=== PATIENT | male | born 1955 | race Caucasian/White ===

== ENCOUNTER 2024-12-14 10:29 | Outpatient (REF) | payer MEDICARE, SELFPAY ==
--- NOTE | ~2024-12-14 | XR_ITS ---
EXAMINATION: XR LUMBAR SPINE 4 OR MORE VIEWS HISTORY: M43.16 - Spondylolisthesis, lumbar region COMPARISON: There are no prior studies for comparison. FINDINGS: AP, and neutral, flexion, and extension lateral views of the lumbar spine are submitted. The bones are osteopenic. There is a mild compression deformity of L2, indeterminate age. The remaining vertebral bodies maintain normal height. There is grade I spondylolisthesis of L4 on L5 and possibly L5 on S1. No abnormal motion is seen with flexion or extension. There is moderate degenerative disc disease with disc space narrowing and osteophyte formation. The visualized paraspinal soft tissues are unremarkable. XR/XR lumbar spine 4V min IMPRESSION: 1. Mild compression deformity of L2, of indeterminate age. 2. Grade I spondylolisthesis of L4 and L5 and possibly L5 on S1. No abnormal motion is seen with flexion or extension. Electronically signed by: Roddy Reyna MD 12/14/2024 11:17 AM EDT
== END 2024-12-14 10:30 | disposition home or self-care (01) ==
LOC: HO.HOSX 10:29
PROVIDERS: PCP Family Medicine; Visit Provider Neurological Surgery
DX: M43.16 Spondylolisthesis, lumbar region (principal)
CPT/HCPCS: 72110; 99202

== ENCOUNTER 2024-12-14 10:29 | Outpatient (AMB) | payer MEDICARE, SELFPAY ==
[2024-12-14 10:49] VITALS: BMI 28.9
--- NOTE | 2024-12-14 10:49 | HO.SPINEOV ---
Vital Signs 12/14/24 10:49 Height 5 ft 8 in Weight 190 lb BMI 28.9 Intake Visit Reasons: LBP Intake Note: Mr. Richter is here today c/o low mid back pain. Supervisor Testing Required: No Allergies Proton Pump Inhibitors Allergy (Severe, Verified 12/14/24 10:50) Dizziness Physical Exam Vital Signs: BMI result Body Mass Index 28.9 Assessment & Plan Assessment & Plan (1) Spondylolisthesis, lumbar region: Code(s): M43.16 - Spondylolisthesis, lumbar region Category: Medical Plan Dear colleague Thank you for referring Pedrito Calvillo to the office today with a chief complaint of back pain. HPI: This 69-year-old male has a 40+ year history of low back pain that was managed with chiropractic therapy. He would throw his back out and then manipulation would cure the back pain. In 2018 he had an acute episode of sciatica down his left leg with a left footdrop. This sciatic symptoms disappeared and the footdrop mostly improved. He is left with back pain that comes after 10 minutes of walking or standing and disappears when he sits down. The symptoms debilitating he can no longer perform normal daily activities. The following conservative treatment options were tried without success antiinflammatories, tylenol, physical therapy, acupuncture, and cortisone shots. PMH: Pyloric stenosis, melanoma Medications: Omeprazole, fluoxetine, diazepam Allergies: NKDA Social history: Lives alone. His passed 2 years ago. He does have some friends and family as supportive system. He is a nonsmoker. He denies alcohol use. Physical Exam: Pleasant male. Height 5'8 weight 190 lb. He ambulates with a cane. On motor exam there is a grade 3/5 weakness of the left dorsiflexors and extensor hallucis longus. Sensory exam is intact. Reflexes are symmetrically intact. No pathological reflexes. Radiological Studies: MRI done at [facility] on 07/11/2024 shows an anterolisthesis L4-5 with central and foraminal stenosis. In addition, there is a lumbar degenerative scoliosis and epidural lipomatosis causing narrowing of the spinal canal at levels L2-L4. Dynamic lumbar x-rays obtained today show a grade 2 L4-5 spondylolisthesis. There is a degenerative scoliosis L3 L5 and lateral listhesis L4-5. Impression/Plan: This patient is suffering from back pain with the neurogenic component. In the past he had L5 sciatica with a drop foot. Therefore I am pretty confident that his symptoms are coming from the L4-5 spondylolisthesis and associated central stenosis and foraminal stenosis. He does have a scoliotic component that includes L3-4. I offered him an L3-L5 oblique lumbar interbody fusion to correct the scoliosis, spondylolisthesis and indirectly decompress his nerve structures. He wants to proceed and is tentatively scheduled for February 13. He is getting an annual upper endoscopy February 06 as he had a bleeding from his esophagus in the past. Thank you for allowing me to participate in your patients care. total time spent was 50 minutes in counseling ,coordination of plan, personal review of imaging, surgical decision making and subsequent plan John Dye MD, PhD Spine Fellowship Trained Neurosurgeon Director, [facility] Orders: Orders XR lumbar spine 4V min Today M43.16 - Spondylolisthesis, lumbar region Coding Level of Care Code New Pt Level 4 (03274) Diagnoses Spondylolisthesis, lumbar region M43.16
--- OUTSIDE RECORDS SUMMARY | 2024-12-14 12:05 | XMS_ITS | Encounter Summary ---
Author Organization [facility] Address [address] [facility] [address] [place] [address] Phone Care Team Providers Care Human Resources Manager Manufacturing Name Role Phone Morgan Newby MD Primary Care Provider [phone]- [phone] Morgan Newby MD Primary Care Provider [phone]- [phone] Encounter Details Date Type Department Care Team (Late st Contact Info) Description 01/29/2022 Procedure Pass [facility] Endoscopy Admitting Dept Virtual Department [address] [place] [address] Social History Tobacco Use Types Packs/Day Years Used Date Smoking Tobacco: Never Smokeless Tobacco: Never Alcohol Use Standard Drinks/Week Comments Yes 0 (1 standard drink = 0.6 oz pur e alcohol) weekly Sex and Gender Information Value Date Recorded Sex Assigned at Male 02/09/2021 10:43 AM EST Legal Sex Male 9:58 PM EDT Gender Identity Male 02/09/2021 10:43 AM EST Sexual Orientation Straight 05/22/2022 4: 43 PM EST documented as of this encounter Plan of Treatment Not on file documented as of this encounter Visit Diagnoses Not on filedocumented in this encounter Additional Health Concerns Infection Onset Date Last Indicated Resolved Time CoV-Risk 04/05/2022 04/05/2022 04/16/2022 1:22 AM EST CoV-Risk Comment:Per note documentation 03/19/2024 03/19/2024 12:11 PM EST CoV-Risk 05/09/2024 05/09/202405/2005/20/2024 1:22 AM EST CoV-Risk 06/03/2024 06/03/2024 06/14/2024 1:21 AM EDT Influenza A 06/03/2024 06/03/2024 06/17/2024 1:21 AM EDT CoV-Risk 07/28/2024 07/28/2024 08/08/2024 1:21 AM EDT documented as of this encounter Care Teams Human Resources Manager Manufacturing Relationship Specialty Start Date End Date Morgan Newby MD PCP - General Family Medicine 01/13/21 10/17/23 Morgan Newby MD [address] [place] [address] PCP - General Family Medicine 10/18/23 documented as of this encounter Additional Source Comments The information contained in this document represents components of the legal health record. It is not the complete legal health record.[facility]
--- OUTSIDE RECORDS SUMMARY | 2024-12-14 12:05 | XMS_ITS | Encounter Summary ---
Author Organization [facility] Address [address] [place] [address] Phone Care Team Providers Care Tower Truck Driver Name Role Phone Morgan Newby MD Primary Care Provider [phone] Encounter Details Date Type Department Care Team (Late st Contact Info) Description 04/25/2024 Procedure Pass [facility] Endoscopy Admitting Dept Virtual Department [address] [place] [address] Social History Tobacco Use Types Packs/Day Years Used Date Smoking Tobacco: Never Smokeless Tobacco: Never Alcohol Use Standard Drinks/Week Comments Not Currently 0 (1 standard drink = 0.6 oz pure alcohol) a few beers a day before supper Education Answer Date Recorded Are you interested in more education? Not on kendell e 07/30/2022 Are you concerned about learning? Not on file 07/30/2022 No 07/30/2022 No 07/30/2022 Digital Access Answer Date Recorded No 08/30/2022 No 08/30/2022 Reliable internet access at home? Not on file 08/30/2022 Device with a working camera? Not on file Intimate Partner Violence Answer Date R ecorded Are you denied basic needs s uch as food, clothing, or medical care? No 04/25/2024 In the past 12 months have y ou been in a relationship with a person who hurts, threatens, or tries to control you? No 04/25/2024 Are you denied basic needs s uch as food, clothing, or medical care? No 04/25/2024 In the past 12 months have y ou been in a relationship with a person who hurts, threatens, or tries to control you? No 04/25/2024 Sex and Gender Information Value Date Recorded [...] Onset Date Last Indicated Resolved Time CoV-Risk 05/09/2024 05/09/2024 05/20/2024 1:22 AM EST CoV-Risk 06/03/2024 06/03/2024 06/14/2024 1:21 AM EDT Influenza A 06/03/2024 06/03/2024 06/17/2024 1:21 AM EDT CoV-Risk 07/28/2024 07/28/2024 08/08/2024 1:21 AM EDT documented as of this encounter Care Teams Tower Truck Driver Relationship Specialty Start Date End Date Morgan Newby MD [address] [place] [address] [email or web address] PCP - General Family Medicine 10/18/23 documented as of this encounter Additional Source Comments The information contained in this document represents components of the legal health record. It is not the complete legal health record.[facility]
--- OUTSIDE RECORDS SUMMARY | 2024-12-14 12:06 | XMS_ITS | Encounter Summary ---
Author Organization [facility] Address [address] [place] [address] Phone Care Team Providers Care Feather Mixer Name Role Phone Morgan Newby MD Primary Care Provider [phone] Encounter Details Date Type Department Care Team (Latest Contact Info) Description 11/05/2024 Transcribe Orders [facility] Laboratory [address] [facility] [address] [place] [address] Angelique Turk NP [address] [place] [address] [email or web address] [employer] Marte's esophagus with dysplasia (Primary Dx) Social History Tobacco Use Types Packs/Day Years Used Date Smoking Tobacco: Never Smokeless Tobacco: Never Alcohol Use Standard Drinks/Week Comments Yes 21 (1 standard drink = 0.6 oz pure alcohol) a few beers or vodka a day before supper Education Answer Date [...] as food, clothing, or medical care? No 08/13/2024 In the past 12 months have y ou been in a relationship with a person who hurts, threatens, or tries to control you? No 08/13/2024 Are you denied basic needs s uch as food, clothing, or medical care? No 08/13/2024 In the past 12 months have y ou been in a relationship with a person who hurts, threatens, or tries to control you? No 08/13/2024 Sex and Gender Information Value Date Recorded Sex Assigned at Male 02/09/2021 10:43 AM EST Legal Sex Male 9:58 PM EDT Gender Identity Male 02/09/2021 10:43 AM EST Sexual Orientation Straight 05/22/2022 4: 43 PM EST documented as of this encounter Plan of Treatment Not on file documented as of this encounter Results * (ABNORMAL) 25-OH vitamin D (11/05/2024 4:21 PM EDT) Pathologist [facility] 25 OH VIT D (TOTAL) 23(L) 30 - 60 ng/mL [facility] Blood 11/05/2024 4:21 PM EDT 11/05/2024 4:24 PM EDT Angelique Turk NP LAB BLOOD ORDERABLES Final Result Performing Organization Address [facility]/ZIP Co de Phone Number [address] [address] * Vitamin B12 (11/05/2024 4:21 PM EDT) [facility] VITAMIN B12 396 232 - 1,245 pg/mL [facility] Blood 11/05/2024 4:21 PM EDT 11/05/2024 4:24 PM EDT Angelique Turk INTERNATIONAL BANKER LAB BLOOD ORDERABLES Final Result Performing Organization Address City/[facility]/ZIP Co de Phone Number [address] [address] * Ferritin (11/05/2024 4:21 PM EDT) [facility] FERRITIN 88 30 - 400 ug/L [facility] Blood 11/05/2024 4:21 PM EDT 11/05/2024 4:24 PM EDT Angelique Turk INTERNATIONAL BANKER LAB BLOOD ORDERABLES Final Result Performing Organization Address City/[facility]/ZIP Co de Phone Number [address] [address] * Folate (11/05/2024 4:21 PM EDT) FOLIC ACID 6.3 4.2 - 19.9 ng/mL [facility] Blood 11/05/2024 4:21 PM EDT 11/05/2024 4:24 PM EDT Angelique Turk INTERNATIONAL BANKER LAB BLOOD ORDERABLES Final Result Performing Organization Address [facility] Co de Phone Number [address] [address] * (ABNORMAL) Iron and iron binding capacity (11/05/2024 4:21 PM EDT) IRON 51 45 - 160 ug/dL [facility] IRON BINDING CAPACITY 322 228 - 428 ug/dL [facility] TRANSFERRIN SATURAT. 16(L) 20 - 55 % [facility] Blood 11/05/2024 4:21 PM EDT 11/05/2024 4:24 PM EDT Angelique Turk INTERNATIONAL BANKER LAB BLOOD ORDERABLES Final Result Performing Organization Address [facility]/ZIP Co de Phone Number [address] [address] * (ABNORMAL) C-Reactive Protein (11/05/2024 4:21 PM EDT) C REACTIVE PROTEIN 5.7(H) 0.0 - 4.0 mg/L [facility] Blood 11/05/2024 4:21 PM EDT 11/05/2024 4:24 PM EDT us Angelique Turk INTERNATIONAL BANKER LAB BLOOD ORDERABLES Final Result [address] [address] * Comprehensive metabolic panel (11/05/2024 4:21 PM EDT) SODIUM 143 133 - 146 mmol/L [facility] POTASSIUM 4.4 3.3 - 5.1 mmol/L [facility] CHLORIDE 108 96 - 108 mmol/L [facility] CO2 21 21 - 35 mmol/L [facility] BUN 11 6 - 19 mg/dL [facility] CREATININE 0.60 0.5 - 1.5 mg/dL [facility] GLUCOSE 96 70 - 99 mg/dL [facility] ALBUMIN 4.0 3.9 - 4.8 g/dL [facility] TOTAL PROTEIN 7.4 6.5 - 8.0 g/dL [facility] CALCIUM 9.9 8.4 - 10.3 mg/dL [facility] ALKALINE PHOSPHATASE 99 39 - 117 U/L [facility] TOTAL BILIRUBIN 0.3 0.0 - 1.2 mg/dL [facility] AST 27 0 - 37 U/L [facility] ALT 19 0 - 40 U/L [facility] GLOBULIN 3.4 1 - 4.8 g/dL [facility] EGFR 103 >59 mL/min/1.7 3m2 [facility] Comment:Estimated glomerular filtration rate calculated using the CKD-EPI refit equation. ANION GAP 18 10 - 20 mmol/L [facility] Blood 11/05/2024 4:2 1 PM EDT 11/05/2024 4:24 PM EDT us Angelique Turk INTERNATIONAL BANKER LAB BLOOD ORDERABLES Final Result Performing Organization Address [facility]/ZIP Co de Phone Number [address] [address] * (ABNORMAL) CBC and differential (11/05/2024 4:21 PM EDT) WBC 6.94 4.00 - 11.00 K/uL [facility] RBC 4.49(L) 4.50 - 5.90 M/uL [facility] HGB 15.3 13.5 - 17.5 g/dL [facility] HCT 44.5 41.0 - 53.0 % [facility] PLT 346 150 - 450 K/uL [facility] MCV 99.1 80.0 - 100.0 fL [facility] MCH 34.1(H) 27.0 - 31.0 pg [facility] MCHC 34.4 32.0 - 36.0 g/dL [facility] RDW 11.6 11.5 - 14.5 % [facility] MPV 9.7 8.4 - 12.0 fL [facility] NRBC 0.00 0.00 /100 WBCs [facility] ABSOLUTE NRBC 0.00 0.00 K/uL [facility] DIFF METHOD Auto [facility] NEUTS 59.6 48.0 - 76.0 % [facility] LYMPHS 23.6 18.0 - 41.0 % [facility] MONOS 13.3(H) 4.0 - 11.0 % [facility] EOS 2.2 0.0 - 5.0 % [facility] BASOS 1.0 0.0 - 1.5 % [facility] Granulocytes, immature (%) 0.3 0.0 - 0.9 % [facility] ABSOLUTE NEUTS 4.14 1.92 - 7.60 K/uL [facility] ABSOLUTE LYMPHS 1.64 0.72 - 4.10 K/uL [facility] ABSOLUTE MONOS 0.92 0.16 - 1.10 K/uL [facility] ABSOLUTE EOS 0.15 0.00 - 0.50 K/uL [facility] ABSOLUTE BASOS 0.07 0.00 - 0.15 K/uL [facility] Granulocytes, immature 0.02 0.00 - 0.09 K/uL [facility] Blood 11/05/2024 4:21 PM EDT 11/05/2024 4:24 PM EDT us Angelique Turk INTERNATIONAL BANKER LAB BLOOD ORDERABLES Final Result [facility] [address] [place] [address] documented in this encounter Visit Diagnoses Diagnosis Marte's esophagus with dysplasia- Primary documented in this encounter Care Teams Feather Mixer Relationship Specialty Start Date End Date Morgan Newby MD [address] [place] [address] [email or web address] PCP - General Family Medicine 10/18/23 documented as of this encounter Additional Source Comments The information contained in this document represents components of the legal health record. It is not the complete legal health record.[facility]
--- OUTSIDE RECORDS SUMMARY | 2024-12-14 12:06 | XMS_ITS | Encounter Summary ---
Author Organization [facility] Address [address] [facility] [address] [place] [address] Phone Care Team Providers Care Etl Manager Name Role Phone Morgan Newby MD Primary Care Provider [phone]- [phone] Morgan Newby MD Primary Care Provider [phone]- [phone] Encounter Details Date Type Department Care Team (Late st Contact Info) Description 03/29/2023 Procedure Pass [facility] Endoscopy Admitting Dept Virtual Department [address] [place] [address] Social History Tobacco Use Types Packs/Day Years Used Date Smoking Tobacco: Never Smokeless Tobacco: Never Alcohol Use Standard Drinks/Week Comments Yes 14 (1 standard drink = 0.6 oz pure [...] with a working camera? Not on file Sex and Gender Information Value Date Recorded [...] Onset Date Last Indicated Resolved Time CoV-Risk Comment:Per note documentation 03/19/2024 03/19/2024 12:11 PM EST CoV-Risk 05/09/2024 05/09/2024 05/20/2024 1:22 AM EST CoV-Risk 06/03/2024 06/03/2024 06/14/2024 1:21 AM EDT Influenza A 06/03/2024 06/03/2024 06/17/2024 1:21 AM EDT CoV-Risk 07/28/2024 07/28/2024 08/08/2024 1:21 AM EDT documented as of this encounter Care Teams Etl Manager Relationship Specialty Start Date End Date Morgan Newby MD [email or web address] PCP - General Family Medicine 01/13/21 10/17/23 Morgan Newby MD [address] [place] [address] [email or web address] PCP - General Family Medicine 10/18/23 documented as of this encounter Additional Source Comments The information contained in this document represents components of the legal health record. It is not the complete legal health record.[facility]
--- OUTSIDE RECORDS SUMMARY | 2024-12-14 12:06 | XMS_ITS | Encounter Summary ---
Author Organization [facility] Address [address] [place] [address] Phone Care Team Providers Care Riding Teacher Name Role Phone Morgan Newby MD Primary Care Provider [phone] Encounter Details Date Type Department Care Team (Late st Contact Info) Description 03/23/2024 Procedure Pass [facility] Endoscopy Admitting Dept Virtual Department [address] [place] [address] Social History Tobacco Use Types Packs/Day Years [...] as food, clothing, or medical care? No 03/22/2024 In the past 12 months have y ou been in a relationship with a person who hurts, threatens, or tries to control you? No 03/22/2024 Are you denied basic needs s uch as food, clothing, or medical care? No 03/22/2024 In the past 12 months have y ou been in a relationship with a person who hurts, threatens, or tries to control you? No 03/22/2024 Sex and Gender Information Value Date Recorded [...] documented as of this encounter Care Teams Riding Teacher Relationship Specialty Start Date End Date Morgan Newby MD [address] [place] [address] [email or web address] PCP - General Family Medicine 10/18/23 documented as of this encounter Additional Source Comments The information contained in this document represents components of the legal health record. It is not the complete legal health record.[facility]
--- OUTSIDE RECORDS SUMMARY | 2024-12-14 12:06 | XMS_ITS | Encounter Summary ---
Author Organization [facility] Address [address] [facility] [address] [place] [address] Phone Care Team Providers Care Tape Folding Machine Operator Name Role Phone Morgan Newby MD Primary Care Provider [phone]- [phone] Morgan Newby MD Primary Care Provider Encounter Details Date Type Department Care Team (Late st Contact Info) Description 02/01/2022 Transcribe Orders Virtual Department [address] [place] [address] Morgan Newby MD [address] [place] [address] [email or web address] Abnormal findings on diagnostic imaging of skull and head, not elsewhere classified (Primary Dx) Social History Tobacco Use Types [...] documented as of this encounter Visit Diagnoses Diagnosis Abnormal findings on diagnostic imaging of skull and head, not elsewhere classified- Primary documented in this encounter Additional Health Concerns Infection [...] documented as of this encounter Care Teams Tape Folding Machine Operator Relationship Specialty Start Date End Date Morgan Newby MD [email or web address] PCP - General Family Medicine 01/13/21 10/17/23 Morgan Newby MD [address] [place] [address] [email or web address] PCP - General Family Medicine 10/18/23 documented as of this encounter Additional Source Comments The information contained in this document represents components of the legal health record. It is not the complete legal health record.[facility]
--- OUTSIDE RECORDS SUMMARY | 2024-12-14 12:06 | XMS_ITS | Encounter Summary ---
Author Organization [facility] Address [address] [facility] [address] [place] [address] Phone Care Team Providers Care Chief Scientist Name Role Phone Morgan Newby MD Primary Care Provider [phone]- [phone] Morgan Newby MD Primary Care Provider [phone]- [phone] Encounter Details Date Type Department Care Team (Late st Contact Info) Description 03/01/2022 Procedure Pass [facility], Ct Scan - [facility] [address] [place] [address] Social History Tobacco Use Types Packs/Day Years Used Date Smoking Tobacco: Never Smokeless Tobacco: Never Alcohol Use Standard Drinks/Week Comments Yes 14 (1 standard drink = 0.6 oz pu re alcohol) 2 beers or vodkas nightly Sex and Gender Information Value Date Recorded Sex Assigned at Male 02/09/2021 10:43 AM EST Legal Sex Male 9:58 PM EDT Gender Identity Male 02/09/2021 10:43 AM EST Sexual Orientation Straight 05/22/2022 4: 43 PM EST documented as of this encounter Functional Status * Calculated C-SSRS Risk Score (Lifetime/Recent) Answer Date of Assessment Author No Risk Indicated 03/01/2022 3:00 AM Ashly Pace, ZOYA * Jack Suicide Severity Rating Scale (Screener/Recent Self-Report) Question Answer Date of Assessment Author 1. Wish to be (Past 1 Month) No 03/01/2022 3:00 AM Ashly Pace RN 2. Non-Specific Active Suicidal Thoughts (Past 1 Month) No 03/01/2022 3:00 AM Ashly Pace RN 6. Suicidal Behavior (Lifetime) No 03/01/2022 3:00 AM Ashly Pace RN documented as of this encounter Plan of Treatment Not on file documented as of this encounter Visit Diagnoses Not on filedocumented in this encounter Additional Health Concerns Infection Onset Date Last Indicated Resolved Time CoV-Risk 04/05/2022 04/05/2022 04/16/2022 1:22 AM EST CoV-Risk Comment:Per note documentation 03/19/2024 03/19/2024 12:11 PM EST CoV-Risk 05/09/2024 05/09/2024 05/20/2024 1:22 AM EST CoV-Risk 06/03/2024 06/03/2024 06/14/2024 1:2 1 AM EDT Influenza A 06/03/2024 06/03/2024 06/17/2024 1:21 AM EDT CoV-Risk 07/28/2024 07/28/2024 08/08/2024 1:21 AM EDT documented as of this encounter Care Teams Chief Scientist Relationship Specialty Start Date End Date Morgan Newby MD PCP - General Family Medicine 01/13/21 10/17/23 Morgan Newby MD [address] [place] [address] PCP - General Family Medicine 10/18/23 documented as of this encounter Additional Source Comments The information contained in this document represents components of the legal health record. It is not the complete legal health record.[facility]
--- OUTSIDE RECORDS SUMMARY | 2024-12-14 12:06 | XMS_ITS | Encounter Summary ---
Author Organization [facility] Address [address] [place] [phone] Phone Care Team Providers Care Loading Machine Tool Setter Name Role Phone Morgan Newby MD Primary Care Provider [phone] Encounter Details Date Type Department Care Team (Late st Contact Info) Description 08/13/2024 Procedure Pass [facility] Admitting Dept Virtual Department [address] [place] [address] Social History Tobacco Use Types Packs/Day Years [...] Date of Assessment Author No Risk Indicated 08/13/2024 10:57 AM EDT Maryann Araujo RN * Delta Suicide Severity Rating Scale (Screener/Recent Self-Report) Question Answer Date of Assessment Author 1. Wish to be (Past 1 Month) No 08/13/2024 10:57 AM Maryann Argueta RN 2. Non-Specific Active Suicidal Thoughts (Past 1 Month) No 08/13/2024 10:57 AM EDT Maryann Araujo RN 6. Suicidal Behavior (Lifetime) No 08/13/2024 10:57 AM JADET Mrayann Araujo RN documented as of this encounter Plan of Treatment Not on file documented as of this encounter Visit Diagnoses Not on filedocumented in this encounter Care Teams Loading Machine Tool Setter Relationship Specialty Start Date End Date Morgan Newby MD [address] [place] [id number] [email or web address] PCP - General Family Medicine 10/18/23 documented as of this encounter Additional Source Comments The information contained in this document represents components of the legal health record. It is not the complete legal health record.[facility]
--- OUTSIDE RECORDS SUMMARY | 2024-12-14 12:06 | XMS_ITS | Encounter Summary ---
Author Organization [facility] Address [address] [facility] [address] [place] [phone] Phone Care Team Providers Care Elevated Work Platform Operator Name Role Phone Morgan Newby MD Primary Care Provider [phone] Morgan Newby MD Primary Care Provider [phone] Encounter Details Date Type Department Care Team (Late st Contact Info) Description 01/13/2021 Procedure Pass [facility], Ct Scan - [facility] [address] [place] [address] Social History Tobacco Use Types Packs/Day Years Used Date Smoking Tobacco: Never Assessed Sex and Gender Information Value Date Recorded Sex Assigned at Male 02/09/2021 10:43 AM EST Legal Sex Male 9:58 PM EDT Gender Identity Male 02/09/2021 10:43 AM EST Sexual Orientation Straight 05/22/2022 4: 43 PM EST documented as of this encounter Functional Status * Calculated C-SSRS Risk Score (Lifetime/Recent) Answer Date of Assessment Author No Risk Indicated 01/13/2021 3:08 PM EDT Jaimie Malcolm RN * [place] Suicide Severity Rating Scale (Screener/Recent Self-Report) Question Answer Date of Assessment Author 1. Wish to be (Past 1 Month) No 021 3:08 PM EDT Jaimie Malcolm RN 2. Non-Specific Active Suici bernarda Thoughts (Past 1 Month) No 01/13/2021 3:08 PM EDT Jaimie Malcolm RN 6. Suicidal Behavior (Lifetime) No 3:08 PM EDT Jaimie Malcolm RN documented as of this encounter Plan [...] documented as of this encounter Care Teams Elevated Work Platform Operator Relationship Specialty Start Date End Date Morgan Newby MD [email or web address] PCP - General Family Medicine 01/13/21 10/17/23 Morgan Newby MD [address] [place] [phone] [email or web address] PCP - General Family Medicine 10/18/23 documented as of this encounter Additional Source Comments The information contained in this document represents components of the legal health record. It is not the complete legal health record.[facility]
--- OUTSIDE RECORDS SUMMARY | 2024-12-14 12:06 | XMS_ITS | Encounter Summary ---
Author Organization [facility] Address [address] [facility] [address] [place] [phone] Phone Care Team Providers Care Chain Offbearer Name Role Phone Morgan Newby MD Primary Care Provider [phone] Reason for Referral * MRI/CAT Scan - Closed Specialty Diagnoses / Procedures Referred By Contac t Referred To Contact Radiology Diagnoses Spinal stenosis, lumbar region with neurogenic claudication Procedures MRI Lumbar Spine CHG MRI, LUMBAR SPINE CHG MRI, LUMBAR SPINE CONTRAST CHG MRI, LUMBAR SPINE COMBO Morgan Newby MD [address] [place] [address] Phone: tel: fax: [email or web address] Referral ID Status Reason Start Date Expiration Date Visits Re quested Visits Authorized [id number] Closed 06/27/2024 08/25/2024 1 1 Encounter Details Date Type Department Care Team (Late st Contact Info) Description 06/27/2024 Transcribe Orders Virtual Department [address] [place] [address] Morgan Newby MD [address] [place] [phone] [email or web address] Spinal stenosis, lumbar region with neurogenic claudication (Primary Dx) Social History Tobacco Use Types [...] as food, clothing, or medical care? No 07/01/2024 In the past 12 months have y ou been in a relationship with a person who hurts, threatens, or tries to control you? No 07/01/2024 Are you denied basic needs s uch as food, clothing, or medical care? No 07/01/2024 In the past 12 months have y ou been in a relationship with a person who hurts, threatens, or tries to control you? No 07/01/2024 Sex and Gender Information Value Date Recorded Sex Assigned at Male 02/09/2021 10:43 AM EST Legal Sex Male 9:58 PM EDT Gender Identity Male 02/09/2021 10:43 AM EST Sexual Orientation Straight 05/22/2022 4: 43 PM EST documented as of this encounter Plan of Treatment Not on file documented as of this encounter Results * MRI LUMBAR SPINE (BONE) WITH AND WITHOUT CONTRAST (07/11/2024 12:22 PM EDT) Anatomical Region Laterality Modality L-spine Magnetic Resonan ce 07/12/2024 10:2 5 AM EDT Impressions 07/12/2024 10:55 AM EDT Multilevel multifactorial degenerative change, similar in appearance to MRI lumbar spine 11/06/2023. Stable grade 1 anterolisthesis of L4 on L5 and L5 on S1. Levoscoliosis. In summary: * At L1-L2, there is moderate to severe spinal canal stenosis and mild bilateral neuroforaminal narrowing, right greater than left. * At L2-L3, there is severe spinal canal stenosis and moderate right neuroforaminal narrowing. * At L3-L4, there is severe spinal canal stenosis and severe right neuroforaminal narrowing. * At L4-L5, there is severe spinal canal stenosis, moderate to severe right neuroforaminal narrowing, and moderate left neuroforaminal narrowing. * At L5-S1, there is severe spinal canal stenosis, mild right neuroforaminal narrowing, and severe left neuroforaminal narrowing. Narrative 07/12/2024 10:55 AM EDT MRI LUMBAR SPINE (BONE) WITH AND WITHOUT CONTRAST Referring clinician's provided indication for this examination in Epic: Outside Radiology Order; spinal stenosis TECHNIQUE: Multi-sequence, multi-planar MRI of the lumbar spine was performed without and with intravenous contrast. COMPARISON: MRI lumbar spine 11/06/2023 FINDINGS: Alignment and Vertebrae: There is no evidence of acute fracture or malalignment. There is stable grade 1 anterolisthesis of L4 on L5 and L5 on S1 measuring 4 mm and 5 mm respectively. There is levoscoliosis with apex at L3, similar to prior imaging. Marrow: There are well-circumscribed ovoid nonenhancing fat signal lesions within the T12 and L2 vertebral body, not significantly changed, likely representing intraosseous hemangiomas. No suspicious osseus lesions are identified. Discs and Endplates: There is diffuse disc desiccation. There is multilevel asymmetric right loss of disc height in keeping with scoliotic curvature. Conus: The conus medullaris terminates at the level of L1 and is unremarkable. Soft Tissue: The prevertebral soft tissues are unremarkable. There is fatty infiltration of the lower posterior paraspinal muscles. Other Findings: There is diffuse trabeculation of the bladder wall. There are bilateral renal parapelvic cysts. Incidentally noted on the localizer images is prostatomegaly. These findings are similar to prior imaging. Findings by Level: T11-T12: Limited evaluation, imaged in the sagittal plane only. Within this limitation, there is no significant spinal canal stenosis. T12-L1: There is no significant posterior disc protrusion, spinal canal stenosis, or neuroforaminal narrowing. There is mild bilateral facet arthropathy. L1-L2: There is a broad-based posterior disc protrusion. There is mild ligamentum flavum hypertrophy and bilateral facet arthropathy. There is dorsal epidural lipomatosis. There is moderate to severe spinal canal stenosis. There is mild bilateral neuroforaminal narrowing, right greater than left. L2-L3: There is a broad-based posterior disc protrusion. There is mild ligamentum flavum hypertrophy there is moderate right and mild left facet arthropathy. There is dorsal epidural lipomatosis. There is severe spinal canal stenosis. There is moderate right neuroforaminal narrowing. There is no significant left neuroforaminal narrowing. L3-L4: There is a broad-based posterior disc protrusion. There is moderate to marked ligamentum flavum hypertrophy. There is marked right and mild left facet arthropathy. There is severe spinal canal stenosis. There is severe right neuroforaminal narrowing. There is no significant left neuroforaminal narrowing. L4-L5: There is anterolisthesis with uncovering of the posterior disc and a superimposed broad-based posterior disc protrusion. There is marked bilateral facet arthropathy. There is dorsal epidural lipomatosis. There is severe spinal canal stenosis. There is moderate to severe right and moderate left neuroforaminal narrowing. L5-S1: There is anterolisthesis with uncovering of the posterior disc and a superimposed broad-based posterior disc protrusion. There is mild bilateral facet arthropathy. There is epidural lipomatosis. There is severe spinal canal stenosis. There is mild right and severe left neuroforaminal narrowing. Procedure Note Nedra Dupont MD - 07/12/2024 MRI LUMBAR SPINE (BONE) WITH AND WITHOUT CONTRAST Referring clinician's provided indication for this examination in Epic:Outside Radiology Order; spinal stenosis TECHNIQUE: Multi-sequence, multi-planar MRI of the lumbar spine wasperformed without and with intravenous contrast. COMPARISON: MRI lumbar spine 11/06/2023 FINDINGS: Alignment and Vertebrae: There is no evidence of acute fracture ormalalignment. There is stable grade 1 anterolisthesis of L4 on L5 and L5on S1 measuring 4 mm and 5 mm respectively. There is levoscoliosis withapex at L3, similar to prior imaging. Marrow: There are well-circumscribed ovoid nonenhancing fat signal lesionswithin the T12 and L2 vertebral body, not significantly changed, likelyrepresenting intraosseous hemangiomas. No suspicious osseus lesions areidentified. Discs and Endplates: There is diffuse disc desiccation. There ismultilevel asymmetric right loss of disc height in keeping with scolioticcurvature. Conus: The conus medullaris terminates at the level of L1 and isunremarkable. Soft Tissue: The prevertebral soft tissues are unremarkable. There isfatty infiltration of the lower posterior paraspinal muscles. Other Findings: There is diffuse trabeculation of the bladder wall. Thereare bilateral renal parapelvic cysts. Incidentally noted on the localizerimages is prostatomegaly. These findings are similar to prior imaging. Findings by Level: T11-T12: Limited evaluation, imaged in the sagittal plane only. Withinthis limitation, there is no significant spinal canal stenosis. T12-L1: There is no significant posterior disc protrusion, spinal canalstenosis, or neuroforaminal narrowing. There is mild bilateral facetarthropathy. L1-L2: There is a broad-based posterior disc protrusion. There is mildligamentum flavum hypertrophy and bilateral facet arthropathy. There isdorsal epidural lipomatosis. There is moderate to severe spinal canalstenosis. There is mild bilateral neuroforaminal narrowing, right greaterthan left. L2-L3: There is a broad-based posterior disc protrusion. There is mildligamentum flavum hypertrophy there is moderate right and mild left facetarthropathy. There is dorsal epidural lipomatosis. There is severe spinalcanal stenosis. There is moderate right neuroforaminal narrowing. There isno significant left neuroforaminal narrowing. L3-L4: There is a broad-based posterior disc protrusion. There is moderateto marked ligamentum flavum hypertrophy. There is marked right and mildleft facet arthropathy. There is severe spinal canal stenosis. There issevere right neuroforaminal narrowing. There is no significant leftneuroforaminal narrowing. L4-L5: There is anterolisthesis with uncovering of the posterior disc wilfrid superimposed broad-based posterior disc protrusion. There is markedbilateral facet arthropathy. There is dorsal epidural lipomatosis. Thereis severe spinal canal stenosis. There is moderate to severe right andmoderate left neuroforaminal narrowing. L5-S1: There is anterolisthesis with uncovering of the posterior disc wilfrid superimposed broad-based posterior disc protrusion. There is mildbilateral facet arthropathy. There is epidural lipomatosis. There issevere spinal canal stenosis. There is mild right and severe leftneuroforaminal narrowing. IMPRESSION: Multilevel multifactorial degenerative change, similar in appearance toMRI lumbar spine 11/06/2023. Stable grade 1 anterolisthesis of L4 on L5 andL5 on S1. Levoscoliosis. In summary: * At L1-L2, there is moderate to severe spinal canal stenosis and mildbilateral neuroforaminal narrowing, right greater than left. * At L2-L3, there is severe spinal canal stenosis and moderate rightneuroforaminal narrowing. * At L3-L4, there is severe spinal canal stenosis and severe rightneuroforaminal narrowing. * At L4-L5, there is severe spinal canal stenosis, moderate to severeright neuroforaminal narrowing, and moderate left neuroforaminalnarrowing. * At L5-S1, there is severe spinal canal stenosis, mild rightneuroforaminal narrowing, and severe left neuroforaminal narrowing. Morgan Newby MD IMG MR XSPECIALTY Final Res ult documented in this encounter Visit Diagnoses Diagnosis Spinal stenosis, lumbar region with neurogenic claudication- Primary Spinal stenosis, lumbar region with neurogenic claudication documented in this encounter Additional Health Concerns Infection Onset Date Last Indicated Resolved Time CoV-Risk 07/28/2024 07/28/2024 08/08/2024 1:21 AM EDT documented as of this encounter Care Teams Chain Offbearer Relationship Specialty Start Date End Date Morgan Newby MD [address] [place] [phone] [email or web address] PCP - General Family Medicine 10/18/23 documented as of this encounter Additional Source Comments The information contained in this document represents components of the legal health record. It is not the complete legal health record.[facility]
--- OUTSIDE RECORDS SUMMARY | 2024-12-14 12:06 | XMS_ITS | Encounter Summary ---
Author Organization [facility] Address [address] [facility] [address] [place] [phone] Phone Care Team Providers Care Timber Buyer Name Role Phone Morgan Newby MD Primary Care Provider [phone] Morgan Newby MD Primary Care Provider [phone] Encounter Details Date Type Department Care Team (Late st Contact Info) Description 04/06/2022 Procedure Pass [facility], Ct Scan - [facility] [address] [place] [address] Social History Tobacco Use Types Packs/Day Years [...] documented as of this encounter Care Teams Timber Buyer Relationship Specialty Start Date End Date Morgan Newby MD PCP - General Family Medicine 01/13/21 10/17/23 Morgan Newby MD [address] [place] [phone] PCP - General Family Medicine 10/18/23 documented as of this encounter Additional Source Comments The information contained in this document represents components of the legal health record. It is not the complete legal health record.[facility]
--- OUTSIDE RECORDS SUMMARY | 2024-12-14 12:06 | XMS_ITS | Clinical Summary ---
Author Organization [facility] Address [email or web address] [facility] [address] [place] [phone] Phone Care Team Providers Care Air Export Agent Name Role Phone Hue Herrera MD Primary Care Provider Allergies No known active allergies Medications DULoxetine (CYMBALTA) 60 MG capsule Take 60 mg by mouth daily. 4 Active DULoxetine (CYMBALTA) 30 MG capsule Take 5 mg by mouth nightly at bedtime. 4 Active pantoprazole (PROTONIX) 40 MG tablet Take 1 tablet (40 mg total) by mouth 2 (two) times a day. 60 tablet 1 4 Active sucralfate (CARAFATE) 1 gram tablet Take 1 g by mouth 4 (four) times a day. 5 Active FLUoxetine (PROZAC) 20 MG capsule Take 20 mg by mouth daily. 5 Active sucralfate (CARAFATE) 1 gram tablet Take 1 tablet by mouth 4 (four) times a day. Active omeprazole (PRILOSEC) 40 MG capsule Take 40 mg by mouth daily. Active diazePAM (VALIUM) 5 MG tablet Take 5 mg by mouth nightly at bedtime as needed. 5 Active docosahexaenoic acid/epa (FISH OIL ORAL) Take by mouth. Activ e ubidecarenone (COQ-10 ORAL) Take by mouth. A ctive SAFFRON EXTRACT ORAL Take by mouth. Activ e GLYCINE ORAL Take by mouth. Ac tive Medication-Free Text OPC supplement Activ e SAW PALMETTO ORAL Take by mouth. Activ e MILK THISTLE ORAL Take by mouth. Activ e CALCIUM-MAGNESI UM-ZINC ORAL Take by mouth. Ac tive Medication-Free Text Bacopa Active Medication-Free Text Liver Cleanse Acti ve Medication-Free Text Blupleurum supplement Active Active Problems Problem Noted Date Diagnosed Date Gastrointestinal hemorrhage with hematemesis Assessment & Plan (03/23/2024 2:41 AM EST): Pt with coffee ground emesis and dark tarry stool x1 day with Hgb drop from 15 - >9 in 3 days after days of repeated vomiting as well as sensation of retained pill. NPO IVF PPI Iv GI consult first thing for plan to scope most likely Transfuse given bleeding, symptomatic modeled. Prostate mass 03/23/2024 Assessment & Plan (03/23/2024 2:41 AM EST): Noted on CT Will get PSA and will require outpatient follow up with urology Pt is aware High anion gap metabolic acidosis 03/23/2024 Assessment & Plan (03/23/2024 2:41 AM EST): Etio not certain, but concerning for lactic acidosis vs. Other etios, he does report taking MANY MANY supplements but I did not get a list, could be related to propylene glycol stabilizer in these. Labs pending Rehydrate, and improve profusion with PRBC's Mottled skin 03/23/2024 Assessment & Plan (03/23/2024 2:41 AM EST): Remarkable mottling of legs With CTA already preformed showing good aortoiliac flow. And palpable pulses. May be related to anemia, transfusing Other unusual etiologies to be considered if it does not improve as he is treated for initial concerns. Persistent vomiting 03/23/2024 Assessment & Plan (03/23/2024 2:41 AM EST): Pt initially presented for persistent vomiting on 03/19 and which continued through current presentation He has not eaten anything solid since 03/19 and has not developed diarrhea or fever to suggest infectious etiology. Vomiting is brought on by eating and I suspect underlying gastric pathology. Await GI consult and scope He will need to be tolerating food prior to discharge Frequent falls 03/23/2024 Assessment & Plan (03/23/2024 2:41 AM EST): Pt with multiple large bruises on his back He reports he has fallen several times recently, niece notes he has mentioned falling out of bed a few days ago as well. Will have PT/OT eval and monitor for falls, call button and bed alarm encouraged. May need STR Elevated troponin 03/23/2024 Assessment & Plan (03/23/2024 2:41 AM EST): Almost certainly demand related With st depression on ECG Will replete with blood, ivf, recheck ecg in AM Monitor on tele Asymptomatic at this time and bleeding thus blood thinner contraindicated Small bowel obstruction 03/01/2022 Assessment & Plan (03/02/2022 2:01 PM EST): Surgery feels this was bowel obstruction versus gastroenteritis with quick resolution. Patient tolerated solid lunch and had a bowel movement after receiving Gastrografin today, surgery does feel he is stable for discharge and he is very eager to go, he is instructed to follow a low fiber diet Insomnia 03/01/2022 Assessment & Plan (03/01/2022 8:51 AM EST): Gabapentin has been ineffective, this is on hold Encounters Date Type Department Care Team Description 11/05/2024 4:21 PM EDT - 11/05/2024 11:59 PM EDT Hospital Encounter [facility] Laboratory [address] [address] Angelique Turk NP Discharge Disposition: Home or Self Care 11/05/2024 Transcribe Orders [facility] Laboratory [address] [address] Angelique Turk NP Marte's esophagus with dysplasia (Primary Dx) 10/06/2024 Orders Only [facility] Health Info Management Virtual Department [address] [place] [address] Provider, MD Tatiana from Last 3 Months Immunizations Immunization Administration Dates Next Due COVID-19 (Pre-01/24) Moderna Vaccine, mRNA, PF 08/30/2020,07/26/2020 Influenza High-Dose Quadriva lent Preservative Free IM 03/02/2022(Deferred: Patient Refused - Changed his mind) Influenza High-Dose Trivalen t Preservative Free IM 03/24/2024 Tdap 07/01/2024,06/29/2021,12/01/2009 Family History Medical History Relation Comments Colon cancer Father Relation Status Comments Brother 1 Alive Brother 2 Alive Father Mother Sister 1 Alive Sister 2 Alive Social History Tobacco Use Types Packs/Day Years [...] Orientation Straight 05/22/2022 4: 43 PM EST Last Filed Vital Signs Vital Sign Reading Time Taken Comments Blood Pressure 146/83 08/13/2024 10:57 AM EDT Pulse 90 08/13/2024 10:57 AM EDT Temperature 36.4 C (97.5 F) 08/13/2024 10:42 AM EDT Respiratory Rate 16 08/13/2024 10:57 AM EDT Oxygen Saturation 100% 08/13/2024 10:57 AM EDT Inhaled Oxygen Concentration - - Weight 90.7 kg (200 lb) 08/09/2024 10:37 AM EDT Height 172.7 cm (5' 8 ) 08/09/2024 10:37 AM EDT Body Mass Index 30.41 08/09/2024 10:37 AM EDT Plan of Treatment Health Maintenance Due Date Last Done Comments DEPRESSION SCREENING 1965 HEPATITIS C SCREENING 1971 COLOGUARD 1998 FIT TEST 1998 FOBT 1998 SIGMOIDOSCOPY 1998 VIRTUAL COLONOSCOPY 1998 PNEUMOCOCCAL VACCINES (50+ years) (1 of 1 - PCV) 2003 ZOSTER VACCINES (1 of 2) 2003 INFLUENZA VACCINE (#1) 2024 , 04/22/2023, 03/02/2022 COVID-19 VACCINE ( - season) 2024 04/27/2023, 12/31/2021, 03/13/2021, Additional history exists RSV VACCINE (1 - 1-dose 75+ series) 2028 LIPID PANEL 03/23/2029 03/23/2024 COLONOSCOPY 03/29/2033 03/29/2023, 01/29/2022 COLORECTAL CANCER SCREENING 03/29/2033 Adult Td,Tdap Booster 07/01/2034 07/01/2024 , 06/29/2021, 12/01/2009 SMOKING STATUS SCREENING (Once After 26 Yrs) Completed 08/13/2024 HEPATITIS A VACCINES Aged Out No long er eligible based on patient's age to complete this topic HIB VACCINES Aged Out No longer eligi ble based on patient's age to complete this topic MENINGOCOCCAL VACCINES (ACWY) Aged Out No longer eligible based on patient's age to complete this topic MENINGOCOCCAL VACCINES (B) Aged Out N o longer eligible based on patient's age to complete this topic Medical Devices Not on file Procedures Procedure Name Priority Date/Time Associated Diagnosis Comments CBC AND DIFFERENTIAL Routine 11/05/2024 4:21 PM EDT Marte's esophagus with dysplasia COMPREHENSIVE METABOLIC PANEL Routine 11/05/2024 4:21 PM EDT Marte's esophagus with dysplasia C-REACTIVE PROTEIN Routine 11/05/2024 4: 21 PM EDT Marte's esophagus with dysplasia IRON AND IRON BINDING CAPACITY Routine 11/05/2024 4:21 PM EDT Marte's esophagus with dysplasia FOLATE Routine 11/05/2024 4:21 PM EDT Marte's esophagus with dysplasia FERRITIN Routine 11/05/2024 4:21 PM EDT Marte's esophagus with dysplasia VITAMIN B12 Routine 11/05/2024 4:21 PM EDT Marte's esophagus with dysplasia 25-OH VITAMIN D Routine 11/05/2024 4:21 PM EDT Marte's esophagus with dysplasia OUTSIDE PATHOLOGY Routine 09/19/2024 4:4 9 AM EDT LIPID PANEL Routine 03/23/2024 8:27 AM EST ENDOSCOPY, COLON 03/29/2023 10:4 0 AM EST from Last 3 Months or Most Recently Relevant to Health Maintenance Results * Comprehensive metabolic panel (11/05/2024 4:21 PM EDT) SODIUM 143 133 - 146 mmol/L [facility] POTASSIUM 4.4 3.3 - 5.1 mmol/L [facility] CHLORIDE 108 96 - 108 mmol/L [facility] CO2 21 21 - 35 mmol/L [facility] BUN 11 6 - 19 mg/dL [facility] CREATININE 0.60 0.5 - 1.5 mg/dL [facility] GLUCOSE 96 70 - 99 mg/dL [facility] ALBUMIN 4.0 3.9 - 4.8 g/dL [facility] TOTAL PROTEIN 7.4 6.5 - 8.0 g/dL [facility] CALCIUM 9.9 8.4 - 10.3 mg/dL [facility] ALKALINE PHOSPHATASE 99 39 - 117 U/L [facility] TOTAL BILIRUBIN 0.3 0.0 - 1.2 mg/dL [facility] AST 27 0 - 37 U/L [facility] ALT 19 0 - 40 U/L [facility] GLOBULIN 3.4 1 - 4.8 g/dL [facility] EGFR 103 >59 mL/min/1.7 3m2 [facility] Comment:Estimated glomerular filtration rate calculated using the CKD-EPI refit equation. ANION GAP 18 10 - 20 mmol/L [facility] Blood 11/05/2024 4:21 PM EDT 11/05/2024 4:24 PM EDT Angelique Turk GROUP CARE WORKER LAB BLOOD ORDERABLES Final Result [address] [address] * (ABNORMAL) Iron and iron binding capacity (11/05/2024 4:21 PM EDT) IRON 51 45 - 160 ug/dL [facility] IRON BINDING CAPACITY 322 228 - 428 ug/dL [facility] TRANSFERRIN SATURAT. 16(L) 20 - 55 % [facility] Blood 11/05/2024 4:21 PM EDT 11/05/2024 4:24 PM EDT Angelique Turk GROUP CARE WORKER LAB BLOOD ORDERABLES Final Result [address] [address] * (ABNORMAL) 25-OH vitamin D (11/05/2024 4:21 PM EDT) 25 OH VIT D (TOTAL) 23(L) 30 - 60 ng/mL [facility] Blood 11/05/2024 4:21 PM EDT 11/05/2024 4:24 PM EDT us Angelique Turk GROUP CARE WORKER LAB BLOOD ORDERABLES Final Result [facility] [address] [place] [address] * (ABNORMAL) CBC and differential (11/05/2024 4:21 PM EDT) WBC 6.94 4.00 - 11.00 K/uL [facility] RBC 4.49(L) 4.50 - 5.90 M/uL [facility] HGB 15.3 13.5 - 17.5 g/dL [facility] HCT 44.5 41.0 - 53.0 % [facility] PLT 346 150 - 450 K/uL [facility] MCV 99.1 80.0 - 100.0 fL [facility] MCH 34.1(H) 27.0 - 31.0 pg [facility] MCHC 34.4 32.0 - 36.0 g/dL [facility] RDW 11.6 11.5 - 14.5 % [facility] MPV 9.7 8.4 - 12.0 fL [facility] NRBC 0.00 0.00 /100 WBCs [facility] ABSOLUTE NRBC 0.00 0.00 K/uL [facility] DIFF METHOD Auto [facility] NEUTS 59.6 48.0 - 76.0 % [facility] LYMPHS 23.6 18.0 - 41.0 % [facility] MONOS 13.3(H) 4.0 - 11.0 % [facility] EOS 2.2 0.0 - 5.0 % [facility] BASOS 1.0 0.0 - 1.5 % [facility] Granulocytes, immature (%) 0.3 0.0 - 0.9 % [facility] ABSOLUTE NEUTS 4.14 1.92 - 7.60 K/uL [facility] ABSOLUTE LYMPHS 1.64 0.72 - 4.10 K/uL [facility] ABSOLUTE MONOS 0.92 0.16 - 1.10 K/uL [facility] ABSOLUTE EOS 0.15 0.00 - 0.50 K/uL [facility] ABSOLUTE BASOS 0.07 0.00 - 0.15 K/uL [facility] Granulocytes, immature 0.02 0.00 - 0.09 K/uL [facility] Blood 11/05/2024 4:21 PM EDT 11/05/2024 4:24 PM EDT Angeliquegosia Amador Burke GROUP CARE WORKER LAB BLOOD ORDERABLES Final Result [address] [address] * (ABNORMAL) C-Reactive Protein (11/05/2024 4:21 PM EDT) C REACTIVE PROTEIN 5.7(H) 0.0 - 4.0 mg/L [facility] Blood 11/05/2024 4:21 PM EDT 11/05/2024 4:24 PM EDT Angelique Turk GROUP CARE WORKER LAB BLOOD ORDERABLES Final Result Performing Organization Address [facility] Co de Phone Number [address] [phone] * Folate (11/05/2024 4:21 PM EDT) FOLIC ACID 6.3 4.2 - 19.9 ng/mL [facility] Blood 11/05/2024 4:21 PM EDT 11/05/2024 4:24 PM EDT Angeliquegosia Amador Burke GROUP CARE WORKER LAB BLOOD ORDERABLES Final Result Performing Organization Address [facility] Co de Phone Number [address] [phone] * Ferritin (11/05/2024 4:21 PM EDT) FERRITIN 88 30 - 400 ug/L [facility] Blood 11/05/2024 4:21 PM EDT 11/05/2024 4:24 PM EDT Angeliquegosia Amador Burke GROUP CARE WORKER LAB BLOOD ORDERABLES Final Result [address] [address] * Vitamin B12 (11/05/2024 4:21 PM EDT) VITAMIN B12 396 232 - 1,245 pg/mL [facility] Blood 11/05/2024 4:21 PM EDT 11/05/2024 4:24 PM EDT Angelique Turk GROUP CARE WORKER LAB BLOOD ORDERABLES Final Result Performing Organization Address City/[facility]/ZIP Co de Phone Number [address] [address] * Outside Pathology (09/19/2024 4:49 AM EDT) Historical Provider MD PATHOLOGY ORDERABLES Elsy l Result * (ABNORMAL) Lipid panel (03/23/2024 8:27 AM EST) HDL 74 mg/dL [facility] Comment: Interpretation <40 mg/dL: Low HDL cholesterol (major risk factor for CHD) Greater than or equal to 60 mg/dL: High HDL cholesterol ( negative risk factor for CHD) HDL - cholesterol is affected by a number of factors, e.g. smoking, excerise, hormones, sex and age. CHOLESTEROL 129 0 - 240 mg/dL [facility] TRIGLYCERIDES 78 30 - 160 mg/dL [facility] LDL 39(L) 50 - 129 mg/dL [facility] Comment: LDL levels in terms of risk for coronary heart disease: <100 mg/dL: Optimal 100-129 mg/dL: Near or above optimal 130-159 mg/dL: Borderline high 160-189 mg/dL: High >190 mg/dL: Very High CARDIAC RISK RATIO 1.7(L) 3.4 - 5.0 C [facility] Blood 03/23/2024 8:27 AM EST 03/23/2024 8:33 AM EST us Marcelle Villanueva MD LAB BLOOD ORDERABLES Final Result [facility] [address] [place] [address] * ENDOSCOPY, COLON (03/29/2023 10:40 AM EST) Narrative Transcriptions Carl Robison MD - 03/29/2023 10:40 AM EST [facility] Patient Name: Pedrito Calvillo Attending MD:: CARL ROBISON MD, Procedure Date: 03/29/2023 10:40AM Date of : 1955 Age: 67 Admit Type: Outpatient Gender: Male Room: [place] [address] Referring MD: HUE HERRERA MD Exam Type: Colonoscopy Indications: High risk colon cancer surveillance: Personalhistory of colonic polyps, Last colonoscopy 1 year ago Medications: Monitored Anesthesia Care Procedure: Informed consent was obtained from the patientafter discussion of the indications, limitations, alternatives, benefits, and risks of the procedure. Risks specifically discussed include but are not limited to medication reactions, missed lesions, bleeding, perforation, or the need for emergent surgery. Throughout the procedure, the patient's blood pressure, pulse, end-tidal CO2, and oxygensaturations were monitored continuously. The Olympus adult variable colonoscope [id number] #6 was introduced through the anus and advanced to the terminal ileum, with identification of theappendiceal orifice and IC valve. The colonoscopy was performed without difficulty. The patient tolerated the procedure well. The quality of the bowelpreparation was good. The terminal ileum, ileocecal valve, appendiceal orifice, and rectum werephotographed. Complications: No immediate complications. Estimated blood loss:None. Findings: The terminal ileum appeared normal. Multiple diverticula were found in the sigmoidcolon and descending colon. Examination of the right colon was repeated in retroflexion and again in NBI. Retroflexion wasalso performed in the rectum. There was a focal area of stellate pallor in the distal rectum consistent with submucosal fibrosisfrom a prior polypectomy. There was no residual polyp identified. A 5 mm polyp was found in the transverse colon. The polyp was flat. The polyp was removed with a cold snare. Resection and retrieval were complete. Impression: - The examined portion of the ileum was normal. - Diverticulosis in the sigmoid colon and in the descending colon. - One 5 mm polyp in the transverse colon, removedwith a cold snare. Resected and retrieved. Recommendation: - Patient has a contact number available for emergencies. The signs and symptoms of potential delayed complications were discussed with thepatient. Return to normal activities tomorrow. Written discharge instructions were provided to thepatient. - Await pathology results. - Repeat colonoscopy in 3 years for surveillance. Carl Robison CARL ROBISON MD 03/29/2023 11:42:19 AM This report has been signed electronically. Number of Addenda: 0 Note Initiated On: 03/29/2023 10:40 AM Procedure Code(s): --- Professional --- 61239, Colonoscopy, flexible; with removal of tumor(s), polyp(s), or other lesion(s) by snare technique --- Technical --- 50992, Colonoscopy, flexible; with removal of tumor(s), polyp(s), or other lesion(s) by snare technique CPT copyright 2021 [employer]. All rights reserved. The codes documented in this report are preliminary and upon seat nailer reviewmay be revised to meet current compliance requirements. Procedure Date: 03/29/2023 10:40:27 AM [address] [place], [place] [id number] Hue Herrera MD GI PROCEDURE ORDERABLES Fin al Result from Last 3 Months or Most Recently Relevant to Health Maintenance Insurance [facility] MEDICARE PPO BLUE REPLACEMENT MEDICARE PART A & B [facility] MEDICARE PPO BLUE REPLACEMENT MEDICARE PART A & B MEDICARE PART A & B MEDICARE PART A & B [place] P[place] BLUE REPLACEMENT MEDICARE PART A & B MEDICARE PPO BLUE REPLACEMENT MEDICARE PART A & B MEDICARE PPO BLUE REPLACEMENT MEDICARE PART A & B MEDICARE PART A & [place] [address] MEDICARE PPO BLUE REPLACEMENT MEDICARE PART A & B Advance Directives For more information, please contact: [phone] (9AM - 5PM [facility], Tuesday-Tuesday) * DNR/DNI (No CPR/No Intubation) (Latest Code Status on File) Date Activated Date Inactivated Comments 03/23/2024 2:43 AM Question Answer Comments Code Status Confirmed With: PatientFamily Code Status Communicated To: Inpatient Attending * Full Code Except DNI Date Activated Date Inactivated Comments 03/01/2022 6:14 AM 03/23/2024 2:43 AM Question Answer Comments Code Status Confirmed With: Patient Code Status Communicated To: Inpatient Attending Care Teams Air Export Agent Relationship Specialty Start Date End Date Hue Herrera MD [address] [place] [phone] [email or web address] PCP - General Family Medicine 10/18/23 Additional Source Comments The information contained in this document represents components of the legal health record. It is not the complete legal health record.[facility]
--- OUTSIDE RECORDS SUMMARY | 2024-12-14 12:06 | XMS_ITS | Encounter Summary ---
Author Organization [facility] Address [address] [facility] [address] [place] [address] Phone Care Team Providers Care Inside Sales Director Name Role Phone Morgan Newby MD Primary Care Provider [phone]- [phone] Morgan Newby MD Primary Care Provider [phone]- [phone] Reason for Referral * MRI/CAT Scan - Closed Specialty Diagnoses / Procedures Referred By Contac t Referred To Contact Radiology Diagnoses Lumbar radiculopathy Procedures MRI Lumbar Spine CHG MRI, LUMBAR SPINE COMBO CHG MRI, LUMBAR SPINE CONTRAST Morgan Newby MD [address] [place] [address] Phone: tel: fax: [email or web address] Referral ID Status Reason Start Date Expiration Date Visits Re quested Visits Authorized [id number] Closed 10/07/2023 11/21/2023 1 1 Encounter Details Date Type Department Care Team (Late st Contact Info) Description 10/07/2023 Transcribe Orders Virtual Department [address] [place] [address] Morgan Newby MD [address] [place] [address] Lumbar radiculopathy (Primary Dx) Social History Tobacco Use Types [...] this encounter Results * MRI LUMBAR SPINE (NEURO) WITHOUT CONTRAST (11/06/2023 2:36 PM EDT) Anatomical Region Laterality Modality L-spine Magnetic Resonan ce 11/09/2023 10:1 2 AM EDT Impressions 11/09/2023 10:25 AM EDT 1. Severe multilevel lumbar spondylosis, with associated grade 1 anterolisthesis of L4-L5 and L5-S1, and superimposed prominent epidural fat. There is resultant multilevel spinal canal stenosis, severe at L4-L5 and L5-S1, with possible cauda equina impingement. In addition, there is severe right foraminal stenosis on L4- L5 and severe left foraminal stenosis at L5-S1. 2. Prostatic hypertrophy with associated bladder wall trabeculation. Correlate with urologic assessment. Narrative 11/09/2023 10:25 AM EDT MRI LUMBAR SPINE (NEURO) WITHOUT CONTRAST Referring clinician's provided indication for this examination in Epic: Outside Radiology Order; RADICULAPATHY LUMBAR REGION, LOW BACK PAIN RESOLVED WITH SITTING, SUSPECT COMPONENT OF SPINAL STENOSIS, HX BACK ARTHRITIS ON VMG X RAY 2019 W/ANTEROLITHESIS L5-S-1 1.3 CM DROPPED FOOT LEFT SIDE TECHNIQUE: MRI LUMBAR SPINE (NEURO) WITHOUT CONTRAST Multi-sequence, multi-planar MRI of the lumbar spine was performed without intravenous contrast. COMPARISON: None. FINDINGS: LUMBAR SPINE: Alignment and Vertebrae: 0.4 cm anterolisthesis of L4 on L5. 0.5 cm anterolisthesis of L5 on S1. Levocurvature centered at L3. Marrow: No bone marrow replacing lesion. Discs and Endplates: Mild multilevel disc height loss, most pronounced at L1-L2. There is vacuum phenomenon at L5-S1. Mild multilevel endplate osteophytosis. Conus: Normal. Soft Tissues: Normal. No prevertebral edema. Other Findings: There is an enlarged, heterogeneous prostate, with multiple foci of T2 hyperintensity. This enlargement is seen on prior CT exams from 201906/21/2020. There is associated diffuse bladder wall thickening with trabeculation. Findings by level: T12-L1: Mild bilateral facet arthropathy. No canal or foraminal narrowing. L1-L2: Diffuse disc bulge with a central caudally migrated extrusion, mild bilateral facet arthropathy, ligamentum flavum infolding, and prominent epidural fat. There is resultant moderate canal narrowing with crowding of the cauda equina nerve roots, and possible impingement. There is retraction of the nerve roots above this level. There is mild bilateral foraminal narrowing. L2-L3: Diffuse disc bulge with moderate bilateral facet nephropathy, ligamentum flavum infolding, and prominent epidural fat, resulting in moderate canal narrowing with crowding of the cauda equina nerve roots and effacement of CSF space. There is mild bilateral foraminal narrowing. L3-L4: Mild diffuse disc bulge and moderate bilateral facet nephropathy, ligamentum flavum infolding, and prominent epidural fat. There is moderate to severe canal stenosis, with effacement of CSF space, crowding of the cauda equina nerve roots, and possible impingement. There is mild right foraminal narrowing. L4-L5: There is grade 1 anterolisthesis of disc uncovering, diffuse disc bulge, severe bilateral facet arthropathy, ligamentum flavum infolding, and prominent epidural fat. There is resultant severe spinal canal stenosis with impingement of the cauda equina nerve roots. In addition, there is mild left and severe right foraminal stenosis. L5-S1: Grade 1 anterolisthesis with disc uncovering, diffuse disc bulge, mild bilateral facet arthropathy, and prominent epidural fat, resulting in severe spinal canal stenosis and mild right and severe left foraminal stenosis. Procedure Note Broderick Cheng MD - 11/09/2023 MRI LUMBAR SPINE (NEURO) WITHOUT CONTRAST Referring clinician's provided indication for this examination in Epic:Outside Radiology Order; RADICULAPATHY LUMBAR REGION, LOW BACK PAINRESOLVED WITH SITTING, SUSPECT COMPONENT OF SPINAL STENOSIS, HX BACKARTHRITIS ON VMG X RAY 2019 W/ANTEROLITHESIS L5-S-1 1.3 CM DROPPED FOOTLEFT SIDE TECHNIQUE: MRI LUMBAR SPINE (NEURO) WITHOUT CONTRAST Multi-sequence, multi-planar MRI of the lumbar spine was performed withoutintravenous contrast. COMPARISON: None. FINDINGS: LUMBAR SPINE: Alignment and Vertebrae: 0.4 cm anterolisthesis of L4 on L5. 0.5 cmanterolisthesis of L5 on S1. Levocurvature centered at L3. Marrow: No bone marrow replacing lesion. Discs and Endplates: Mild multilevel disc height loss, most pronounced atL1-L2. There is vacuum phenomenon at L5-S1. Mild multilevel endplateosteophytosis. Conus: Normal. Soft Tissues: Normal. No prevertebral edema. Other Findings: There is an enlarged, heterogeneous prostate, withmultiple foci of T2 hyperintensity. This enlargement is seen on prior CTexams from 201906/21/2020. There is associated diffuse bladder wall thickening with trabeculation. Findings by level: T12-L1: Mild bilateral facet arthropathy. No canal or foraminalnarrowing. L1-L2: Diffuse disc bulge with a central caudally migrated extrusion, mildbilateral facet arthropathy, ligamentum flavum infolding, and prominentepidural fat. There is resultant moderate canal narrowing with crowding ofthe cauda equina nerve roots, and possible impingement. There isretraction of the nerve roots above this level. There is mild bilateralforaminal narrowing. L2-L3: Diffuse disc bulge with moderate bilateral facet nephropathy,ligamentum flavum infolding, and prominent epidural fat, resulting inmoderate canal narrowing with crowding of the cauda equina nerve roots andeffacement of CSF space. There is mild bilateral foraminal narrowing. L3-L4: Mild diffuse disc bulge and moderate bilateral facet nephropathy,ligamentum flavum infolding, and prominent epidural fat. There is moderateto severe canal stenosis, with effacement of CSF space, crowding of thecauda equina nerve roots, and possible impingement. There is mild rightforaminal narrowing. L4-L5: There is grade 1 anterolisthesis of disc uncovering, diffuse discbulge, severe bilateral facet arthropathy, ligamentum flavum infolding,and prominent epidural fat. There is resultant severe spinal canalstenosis with impingement of the cauda equina nerve roots. In addition,there is mild left and severe right foraminal stenosis. L5-S1: Grade 1 anterolisthesis with disc uncovering, diffuse disc bulge,mild bilateral facet arthropathy, and prominent epidural fat, resulting insevere spinal canal stenosis and mild right and severe left foraminalstenosis. IMPRESSION: 1. Severe multilevel lumbar spondylosis, with associated grade 1anterolisthesis of L4-L5 and L5-S1, and superimposed prominent epiduralfat. There is resultant multilevel spinal canal stenosis, severe at L4-L5and L5-S1, with possible cauda equina impingement. In addition, there issevere right foraminal stenosis on L4- L5 and severe left foraminalstenosis at L5-S1. 2. Prostatic hypertrophy with associated bladder wall trabeculation.Correlate with urologic assessment. Morgan Newby MD [facility] Final Res ult documented in this encounter Visit Diagnoses Diagnosis Lumbar radiculopathy- Primary Thoracic or lumbosacral neuritis or radiculitis, unspecified Lumbar radiculopathy Thoracic or lumbosacral neuritis or radiculitis, unspecified documented in this encounter Additional Health Concerns Infection Onset Date Last Indicated Resolved Time CoV-Risk Comment:Per note documentation 03/19/2024 03/19/2024 12:11 PM EST CoV-Risk 05/09/2024 05/09/2024 05/20/2024 1:22 AM EST CoV-Risk 06/03/2024 06/03/2024 06/14/2024 1:21 AM EDT Influenza A 06/03/2024 06/03/2024 06/17/2024 1:21 AM EDT CoV-Risk 07/28/2024 07/28/2024 08/08/2024 1:21 AM EDT documented as of this encounter Care Teams Inside Sales Director Relationship Specialty Start Date End Date Morgan Newby MD [email or web address] PCP - General Family Medicine 01/13/21 10/17/23 Morgan Newby MD [address] [place] [address] [email or web address] PCP - General Family Medicine 10/18/23 documented as of this encounter Additional Source Comments The information contained in this document represents components of the legal health record. It is not the complete legal health record.[facility]
--- OUTSIDE RECORDS SUMMARY | 2024-12-14 12:06 | XMS_ITS | Encounter Summary ---
Author Organization [facility] Address [address] [facility] [address] [place] [address] Phone Care Team Providers Care Critical Systems Technician Name Role Phone Morgan Newby MD Primary Care Provider [phone]- [phone] Morgan Newby MD Primary Care Provider [phone]- [phone] Encounter Details Date Type Department Care Team (Late st Contact Info) Description 06/29/2021 Procedure Pass [facility], Ct Scan - [facility] [address] [place] [address] Social History Tobacco Use Types Packs/Day Years Used Date Smoking Tobacco: Never Alcohol Use Standard Drinks/Week Comments Yes 0 (1 standard drink = 0.6 oz pur e alcohol) 2-3 drinks daily Sex and Gender Information Value Date Recorded Sex Assigned at Male 02/09/2021 10:43 AM EST Legal Sex Male 9:58 PM EDT Gender Identity Male 02/09/2021 10:43 AM EST Sexual Orientation Straight 05/22/2022 4: 43 PM EST documented as of this encounter Functional Status * Calculated C-SSRS Risk Score (Lifetime/Recent) Answer Date of Assessment Author No Risk Indicated 06/29/2021 9:25 PM EDT Yamilex Herrera RN * [place] Suicide Severity Rating Scale (Screener/Recent Self-Report) Question Answer Date of Assessment Author 1. Wish to be (Past 1 Month) No 022 9:25 PM EDT John, Yamilex, RN 2. Non-Specific Active Suici bernarda Thoughts (Past 1 Month) No 06/29/2021 9:25 PM EDT Karishma Lopez RN 6. Suicidal Behavior (Lifetime) No 9:25 PM EDT Yamilex Lopez RN documented as of this encounter Plan [...] documented as of this encounter Care Teams Critical Systems Technician Relationship Specialty Start Date End Date Morgan Newby MD PCP - General Family Medicine 01/13/21 10/17/23 Morgan Newby MD [address] [place] [phone] PCP - General Family Medicine 10/18/23 documented as of this encounter Additional Source Comments The information contained in this document represents components of the legal health record. It is not the complete legal health record.[facility]
--- OUTSIDE RECORDS SUMMARY | 2024-12-14 12:06 | XMS_ITS | Encounter Summary ---
Author Organization [facility] Address [address] [facility] [address] [place] [address] Phone Care Team Providers Care Boilermaker [employer] Name Role Phone Morgan Newby MD Primary Care Provider [phone] Encounter Details Date Type Department Care Team (Latest Contact Info) Description 06/28/2024 Transcribe Orders [facility] [address] [address] Angelique Turk NP [address] [place] [address] [email or web address] [employer] Ulcer of esophagus without bleeding (Primary Dx); Gastroesophageal reflux disease, unspecified whether esophagitis present Social History Tobacco Use Types Packs/Day Years [...] Date of Assessment Author No Risk Indicated 07/01/2024 5:58 PM EDT Vickie Block, ZOYA * [place] Suicide Severity Rating Scale (Screener/Recent Self-Report) Question Answer Date of Assessment Author 1. Wish to be (Past 1 Month) No 07/01/2024 5:58 PM EDT Vickie Block, ZOYA 2. Non-Specific Active Suici brenarda Thoughts (Past 1 Month) No 07/01/2024 5:58 PM EDT Vickie Block, ZOYA 6. Suicidal Behavior (Lifetime) No 5:58 PM EDT Vickie Block, ZOYA documented as of this encounter Plan of Treatment Not on file documented as of this encounter Results * Vitamin B12 (06/28/2024 11:16 AM EDT) VITAMIN B12 488 232 - 1,245 pg/mL [facility] Blood 06/28/2024 11:1 6 AM EDT 06/28/2024 11:21 AM EDT us Angelique Turk FREEZING ROOM WORKER LAB BLOOD ORDERABLES Final Result [facility] [address] [place] [address] * Ferritin (06/28/2024 11:16 AM EDT) FERRITIN 307 30 - 400 ug/L [facility] Blood 06/28/2024 11:1 6 AM EDT 06/28/2024 11:21 AM EDT Angelique Turk FREEZING ROOM WORKER LAB BLOOD ORDERABLES Final Result Performing Organization Address City/[facility]/ZIP Co de Phone Number [address] [address] * Folate (06/28/2024 11:16 AM EDT) FOLIC ACID 6.0 4.2 - 19.9 ng/mL [facility] Blood 06/28/2024 11:1 6 AM EDT 06/28/2024 11:21 AM EDT Angelique Turk FREEZING ROOM WORKER LAB BLOOD ORDERABLES Final Result Performing Organization Address [facility]/ZIP Co de Phone Number [address] [address] * Iron and iron binding capacity (06/28/2024 11:16 AM EDT) IRON 141 45 - 160 ug/dL [facility] IRON BINDING CAPACITY 350 228 - 428 ug/dL [facility] TRANSFERRIN SATURAT. 40 20 - 55 % [facility] Blood 06/28/2024 11:1 6 AM EDT 06/28/2024 11:21 AM EDT Angelique Turk FREEZING ROOM WORKER LAB BLOOD ORDERABLES Final Result Performing Organization Address City/[facility]/ZIP Co de Phone Number [address] [phone] * C-Reactive Protein (06/28/2024 11:16 AM EDT) C REACTIVE PROTEIN <3.0 0.0 - 4.0 mg/L [facility] Blood 06/28/2024 11:1 6 AM EDT 06/28/2024 11:21 AM EDT us Angelique Turk FREEZING ROOM WORKER LAB BLOOD ORDERABLES Final Result [address] [address] * (ABNORMAL) Comprehensive metabolic panel (06/28/2024 11:16 AM EDT) SODIUM 141 133 - 146 mmol/L [facility] POTASSIUM 4.0 3.3 - 5.1 mmol/L [facility] CHLORIDE 102 96 - 108 mmol/L [facility] CO2 21 21 - 35 mmol/L [facility] BUN 7 6 - 19 mg/dL [facility] CREATININE 0.60 0.5 - 1.5 mg/dL [facility] GLUCOSE 110(H) 70 - 99 mg/dL [facility] ALBUMIN 3.9 3.9 - 4.8 g/dL [facility] TOTAL PROTEIN 7.2 6.5 - 8.0 g/dL [facility] CALCIUM 8.7 8.4 - 10.3 mg/dL [facility] ALKALINE PHOSPHATASE 130(H) 39 - 117 U/L [facility] TOTAL BILIRUBIN 0.3 0.0 - 1.2 mg/dL [facility] AST 82(H) 0 - 37 U/L [facility] ALT 61(H) 0 - 40 U/L [facility] GLOBULIN 3.3 1 - 4.8 g/dL [facility] EGFR 103 >59 mL/min/1.7 3m2 [facility] Comment:Estimated glomerular filtration rate calculated using the CKD-EPI refit equation. ANION GAP 22(H) 10 - 20 mmol/L [facility] Blood 06/28/2024 11:1 6 AM EDT 06/28/2024 11:21 AM EDT us Angelique Turk FREEZING ROOM WORKER LAB BLOOD ORDERABLES Final Result [address] [address] * (ABNORMAL) CBC and differential (06/28/2024 11:16 AM EDT) WBC 4.85 4.00 - 11.00 K/uL [facility] RBC 4.40(L) 4.50 - 5.90 M/uL [facility] HGB 14.9 13.5 - 17.5 g/dL [facility] HCT 43.3 41.0 - 53.0 % [facility] PLT 229 150 - 450 K/uL [facility] MCV 98.4 80.0 - 100.0 fL [facility] MCH 33.9(H) 27.0 - 31.0 pg [facility] MCHC 34.4 32.0 - 36.0 g/dL [facility] RDW 12.8 11.5 - 14.5 % [facility] MPV 9.5 8.4 - 12.0 fL [facility] NRBC 0.00 0.00 /100 WBCs [facility] ABSOLUTE NRBC 0.00 0.00 K/uL [facility] DIFF METHOD Auto [facility] NEUTS 53.0 48.0 - 76.0 % [facility] LYMPHS 23.7 18.0 - 41.0 % [facility] MONOS 16.1(H) 4.0 - 11.0 % [facility] EOS 4.3 0.0 - 5.0 % [facility] BASOS 1.9(H) 0.0 - 1.5 % [facility] Granulocytes, immature (%) 1.0(H) 0.0 - 0.9 % [facility] ABSOLUTE NEUTS 2.57 1.92 - 7.60 K/uL [facility] ABSOLUTE LYMPHS 1.15 0.72 - 4.10 K/uL [facility] ABSOLUTE MONOS 0.78 0.16 - 1.10 K/uL [facility] ABSOLUTE EOS 0.21 0.00 - 0.50 K/uL [facility] ABSOLUTE BASOS 0.09 0.00 - 0.15 K/uL [facility] Granulocytes, immature 0.05 0.00 - 0.09 K/uL [facility] Blood 06/28/2024 11:1 6 AM EDT 06/28/2024 11:21 AM EDT Angelique Turk FREEZING ROOM WORKER LAB BLOOD ORDERABLES Final Result [facility] [address] [place] [address] documented in this encounter Visit Diagnoses Diagnosis Ulcer of esophagus without bleeding- Primary Gastroesophageal reflux disease, unspecified whether esophagitis present documented in this encounter Additional Health Concerns Infection Onset Date Last Indicated Resolved Time CoV-Risk 07/28/2024 07/28/2024 08/08/2024 1:21 AM EDT documented as of this encounter Care Teams [employer] Relationship Specialty Start Date End Date Morgan Newby MD [address] [place] [address] [email or web address] PCP - General Family Medicine 10/18/23 documented as of this encounter Additional Source Comments The information contained in this document represents components of the legal health record. It is not the complete legal health record.[facility]
--- OUTSIDE RECORDS SUMMARY | 2024-12-14 12:06 | XMS_ITS | Encounter Summary ---
Author Organization [facility] Address [address] [place] [address] Phone Care Team Providers Care Leather Worker Name Role Phone Morgan Newby MD Primary Care Provider [phone] [phone] Encounter Details Date Type Department Care Team (Late st Contact Info) Description 06/27/2024 Procedure Pass [facility], [facility] [address] [place] [address] Social History Tobacco Use Types Packs/Day Years [...] documented as of this encounter Care Teams Leather Worker Relationship Specialty Start Date End Date Morgan Newby MD [address] [place] [phone] [email or web address] PCP - General Family Medicine 10/18/23 documented as of this encounter Additional Source Comments The information contained in this document represents components of the legal health record. It is not the complete legal health record.[facility]
--- OUTSIDE RECORDS SUMMARY | 2024-12-14 12:06 | XMS_ITS | Encounter Summary ---
Author Organization [facility] Address [address] [place] [address] Phone Care Team Providers Care Assorter Name Role Phone Morgan Newby MD Primary Care Provider [phone] Encounter Details Date Type Department Care Team (Late st Contact Info) Description 06/09/2024 Procedure Pass [facility], Ct Scan - [facility] [address] [place] [address] Social History Tobacco Use Types Packs/Day Years [...] as food, clothing, or medical care? No 06/09/2024 In the past 12 months have y ou been in a relationship with a person who hurts, threatens, or tries to control you? No 06/09/2024 Are you denied basic needs s uch as food, clothing, or medical care? No 06/09/2024 In the past 12 months have y ou been in a relationship with a person who hurts, threatens, or tries to control you? No 06/09/2024 Sex and Gender Information Value Date Recorded Sex Assigned at Male 02/09/2021 10:43 AM EST Legal Sex Male 9:58 PM EDT Gender Identity Male 02/09/2021 10:43 AM EST Sexual Orientation Straight 05/22/2022 4: 43 PM EST documented as of this encounter Functional Status * Calculated C-SSRS Risk Score (Lifetime/Recent) Answer Date of Assessment Author No Risk Indicated 06/09/2024 9:31 PM Valentine Monteiro RN * [place] Suicide Severity Rating Scale (Screener/Recent Self-Report) Question Answer Date of Assessment Author 1. Wish to be (Past 1 Month) No 025 9:31 PM Valentine Monteiro RN 2. Non-Specific Active Suici bernarda Thoughts (Past 1 Month) No 06/09/2024 9:31 PM Delmy Monteiro RN 6. Suicidal Behavior (Lifetime) No 9:31 PM Valentine Monteiro RN documented as of this encounter Plan of Treatment Not on file documented as of this encounter Visit Diagnoses Not on filedocumented in this encounter Additional Health Concerns Infection Onset Date Last Indicated Resolved Time CoV-Risk 06/03/2024 06/03/2024 06/14/2024 1:21 AM EDT Influenza A 06/03/2024 06/03/2024 06/17/2024 1:21 AM EDT CoV-Risk 07/28/2024 07/28/2024 08/08/2024 1:21 AM EDT documented as of this encounter Care Teams Assorter Relationship Specialty Start Date End Date Morgan Newby MD [address] [place] [phone] [email or web address] PCP - General Family Medicine 10/18/23 documented as of this encounter Additional Source Comments The information contained in this document represents components of the legal health record. It is not the complete legal health record.[facility]
--- OUTSIDE RECORDS SUMMARY | 2024-12-14 12:06 | XMS_ITS | Encounter Summary ---
Author Organization [facility] Address [address] [facility] [address] [place] [address] Phone Care Team Providers Care Repairer Welding Equipment Name Role Phone Morgan Newby MD Primary Care Provider [phone]- [phone] Morgan Newby MD Primary Care Provider [phone]- [phone] Encounter Details Date Type Department Care Team (Late st Contact Info) Description 10/07/2023 Procedure Pass [facility], [address] [address] Social History Tobacco Use Types Packs/Day Years [...] documented as of this encounter Care Teams Repairer Welding Equipment Relationship Specialty Start Date End Date Morgan Newby MD [email or web address] PCP - General Family Medicine 01/13/21 10/17/23 Morgan Newby MD [address] [place] [address] [email or web address] PCP - General Family Medicine 10/18/23 documented as of this encounter Additional Source Comments The information contained in this document represents components of the legal health record. It is not the complete legal health record.[facility]
--- OUTSIDE RECORDS SUMMARY | 2024-12-14 12:06 | XMS_ITS | Encounter Summary ---
Author Organization [facility] Address [address] [place] [phone] Phone Care Team Providers Care Email Producer Name Role Phone Morgan Newby MD Primary Care Provider [phone] Morgan Newby MD Primary Care Provider [phone] Encounter Details Date Type Department Care Team (Late st Contact Info) Description 06/29/2021 Procedure Pass [facility], Ct Scan - [facility] [address] [place] [address] Social History Tobacco Use Types Packs/Day Years [...] 9:25 PM EDT Yamilex Herrera RN * [place] Suicide Severity Rating Scale (Screener/Recent Self-Report) Question [...] documented as of this encounter Care Teams Email Producer Relationship Specialty Start Date End Date Morgan Newby MD PCP - General Family Medicine 01/13/21 10/17/23 Morgan Newby MD [address] [place] [phone] PCP - General Family Medicine 10/18/23 documented as of this encounter Additional Source Comments The information contained in this document represents components of the legal health record. It is not the complete legal health record.[facility]
--- OUTSIDE RECORDS SUMMARY | 2024-12-14 12:06 | XMS_ITS | Encounter Summary ---
Author Organization [facility] Address [address] [place] [phone] Phone Care Team Providers Care Hospital Corpsman Name Role Phone Morgan Newby MD Primary Care Provider [phone] Encounter Details Date Type Department Care Team (Late st Contact Info) Description 03/22/2024 Procedure Pass [facility], Ct Scan - [facility] [address] [place] [address] Social History Tobacco Use Types Packs/Day Years [...] Date of Assessment Author No Risk Indicated 03/22/2024 9:59 PM Jian Jackson, ZOYA * [place] Suicide Severity Rating Scale (Screener/Recent Self-Report) Question Answer Date of Assessment Author 1. Wish to be (Past 1 Month) No 024 9:59 PM Jian Jackson, ZOYA 2. Non-Specific Active Suici bernarda Thoughts (Past 1 Month) No 03/22/2024 9:59 PM Truman Jackson RN 6. Suicidal Behavior (Lifetime) No 9:59 PM Jian Jackson, ZOYA documented as of this encounter Plan of Treatment Not on file documented as of this encounter Visit Diagnoses Not on filedocumented in this encounter Additional Health Concerns Infection Onset Date Last Indicated Resolved Time CoV-Risk Comment:Per note documentation 03/19/2024 03/19/2024 4 12:11 PM EST CoV-Risk 05/09/2024 05/09/2024 05/20/2024 1:22 AM EST CoV-Risk 06/03/2024 06/03/2024 06/14/2024 1:21 AM EDT Influenza A 06/03/2024 06/03/2024 06/17/2024 1:2 1 AM EDT CoV-Risk 07/28/2024 07/28/2024 08/08/2024 1:21 AM EDT documented as of this encounter Care Teams Hospital Corpsman Relationship Specialty Start Date End Date Morgan Newby MD [address] [place] [phone] [email or web address] PCP - General Family Medicine 10/18/23 documented as of this encounter Additional Source Comments The information contained in this document represents components of the legal health record. It is not the complete legal health record.[facility]
== END 2024-12-14 12:18 | disposition home or self-care (01) ==
LOC: HO.HNS 10:30
PROVIDERS: PCP Family Medicine; Visit Provider Neurological Surgery
DX: M43.16 Spondylolisthesis, lumbar region (principal)
CPT/HCPCS: 99204

== ENCOUNTER → 2024-12-14 11:06 | Outpatient (BNV) | payer MEDICARE, SELFPAY | PROVIDERS: PCP Family Medicine; Visit Provider Radiology Diagnostic Radiology | DX: M43.16 Spondylolisthesis, lumbar region (principal) | CPT/HCPCS: 72110 ==

== ENCOUNTER 2025-03-19 10:20 | Inpatient (IN) | payer MEDICARE, SELFPAY ==
[2025-03-04 11:58] VITALS: BP 122/73; PULSE 71; RESP 20; O2SAT 98; BMI 26.6
[2025-03-04 13:49] LABS: Hematocrit 45.8 % (42.0-52.0); Hemoglobin 15.4 g/dl (14.0-18.0); Mean Corpuscular HGB Conc 33.6 g/dl (31.0-36.0); Mean Corpuscular Hemoglobin 31.8 pg (27.0-33.0); Mean Corpuscular Volume 94.4 fL (80.0-98.0); NRBC Abs Auto 0.000 X10*3/uL (0.0-0.012); NRBC Pct Auto 0.0 /100WBC (0.0-0.2); Platelet Count 244 X10*3/uL (160-400); Red Blood Count 4.85 X10*6/uL (4.60-5.80); White Blood Count 7.2 X10*3/uL (4.8-10.8)
[2025-03-04 14:21] LABS: Anion Gap 12 (12-20); Blood Urea Nitrogen 13 mg/dL (9-16); Calcium 9.1 mg/dL (8.4-10.2); Carbon Dioxide 25 mmol/L (22-29); Chloride 110 mmol/L (96-108); Creatinine Clr Calc Pharmacy 104.0; Estimated Glomerular Filt Rate > 60; Potassium 4.1 mmol/L (3.3-5.1); Sodium 143 mmol/L (135-145)
[2025-03-19] VITALS (8 sets, daily range): BP systolic 112–135; BP diastolic 57–84; PULSE 70–87; RESP 10–19; TEMP 36–36.9; O2SAT 92–98
--- NOTE | ~2025-03-19 | FL_ITS ---
EXAMINATION: FL GUIDANCE ONLY HISTORY: L3-L5 OLIF COMPARISON: Correlation is made with plain films of the lumbar spine dated 12/14/2024. TECHNIQUE: Fluoroscopy time: 3 minutes, 2.6 seconds. Cumulative Dose: 8 5.521 mGy. DAP: 29.3301 Gycm2 Images: 4. FINDINGS: Fluoroscopic spot films of the lumbar spine demonstrate posterior fusion of L3-L5 with pedicle screws, spinal stabilization rods, and intervertebral spacers. FL/FL guidance in OR IMPRESSION: Fluoroscopy during procedure. Please see procedure report for additional information. Electronically signed by: Roddy Reyna MD 03/20/2025 07:15 AM [facility]
[2025-03-19] MEDS: Lactated Ringers 1,000 ML 100 ML IVCONT (10:46)
--- NOTE | 2025-03-19 10:49 | PHA.MEDREC ---
Pharmacy Consult ? Medication Reconciliation Pharmacy has reviewed the medication reconciliation completed by nursing.
--- NOTE | 2025-03-19 11:51 | P.HPSUR_ITS ---
Pre-Procedural Eval Section A - 24 Hr Update-Section A only Date of Service: 03/19/25 The patient is an INPATIENT: No Changes since office visit: No Cold of Flu in the past 2 weeks, No New Medical Problems, No Changes in Medication and No Patient answered all questions The patient has been examined within 24 hours of the surgical procedure. The History & Physical has been completed within 30 days and I have reviewed it.: No Section B - Complete if H&P > 30 days Chief Complaint: s/p L3-5 OLIF Allergies: Allergies Allergy/AdvReac Type Severity Reaction Status Date / Time esomeprazole Allergy Severe severe Verified 03/04/25 11:46 loss of balance/dizziness Review of Systems Sugical H&P ROS: Negative: Constitution, Cardiovascular, Respiratory, Neurological, Psychiatric, Hem-Onc, Allergic/Immunologic, Gastrointestinal, Genitourinary, Musculoskeletal, Integumentary, Endocrine and Eyes/Ears/N ose/Throat Exam Surgical H&P Exam: Normal: HEENT, Normal: Heart, Normal: Lungs, Normal: Extremities, Normal: Abdomen, Normal: Skin and Normal: Neurological (awake, alert,oriented x 3 ) Plan Diagnosis/Plan: Unchanged L3-4, L4-5 oblique lumbar interbody fusion Time Spent With Patient Time: Total time managing care of this patient today _5___ minutes.
--- NOTE | 2025-03-19 12:08 | HO.ANESPROP2 ---
Documented by User: Anabel Muse NP 03/05/25 08:38 HPI - Anesthesia Eval Consult details Narrative: 69yo M for L3-4,L4-5 Oblique Lumbar Interbody Fusion, 03/19/25 No recent illness No CP/SOB with walking ~ 3 miles daily with cane GERD controlled on ppi. Prior esophageal tear ~ late 2023. Marte's treated well on ppi. No current plan to repair hiatal hernia Daily ETOH: 2-3 beers with dinner Marijuana daily: instucted 3 day hold Encouraged reid trim PMFSH Active Problems Active Problems: All Active Problems Spondylolisthesis, lumbar region (Acute) Past Medical History Medical History (Updated 03/19/25 @ 10:21 by Robert Bethea RN) History of malignant melanoma of back Neuropathy Back pain GERD (gastroesophageal reflux disease) Hiatal hernia BPH (benign prostatic hyperplasia) Fatty liver Depression Renal calculi Steatosis, liver Barretts esophagus Melanoma Lumbar spondylosis Family History Family history of problems with anesthesia: No Surgical History Surgical History History of pyloromyotomy H/O colonoscopy History of esophagogastroduodenoscopy (EGD) History of Problems with Anesthesia: No Social History Social History Household Members Other:: 2 family house Are you a primary acute care registered nurse to a significant other at home: No Do you presently have visiting nurse or other home services: Yes (homemaker services) Patient Tobacco Use Status: Never used Tobacco Use of substances other than those prescribed or required for medical reasons: Yes Substance Use Type Other:: smokes marijuana-advised to hold alcohol & marijuana 3 days pre-op Substance Use Frequency: Daily Have you been hit, kicked, punched, or otherwise hurt by someone within the past year? If so, by whom?: No Spiritual Healthcare Practices: no Confucianism Healthcare Practices: no Cultural Healthcare Practices: no Are you DNR?: No Advance Directives: No Advance Directives Information Provided: No Advance Directives on File: No Meds Allergies Allergy/AdvReac Type Severity Reaction Status Date / Time esomeprazole Allergy Severe severe Verified 03/04/25 11:46 loss of balance/dizziness Home Medications ?Medication ?Instructions ?Recorded ?Confirmed ?Last Taken ?Type diazepam 10 mg tablet 10 mg PO BEDTIME 02/27/25 03/19/25 Unknown History fluoxetine 40 mg capsule 40 mg PO QAM 02/27/25 03/19/25 03/18/25 History cyanocobalamin (vitamin B-12) 1,000 mcg PO DAILY 03/04/25 03/19/25 03/18/25 History 1,000 mcg tablet (Vitamin B-12) magnesium oxide 500 mg capsule 500 mg PO BID 03/04/25 03/19/25 03/18/25 History multivitamin 2 tab PO DAILY 03/04/25 03/19/25 03/18/25 History pantoprazole 40 mg tablet,delayed 40 mg PO QAM 03/04/25 03/04/25 03/19/25 History release Exam Height,Weight and Vital Signs: Height 5 ft 8 in Weight 79.379 kg Last Vital Signs Pulse 71 03/04/25 11:58 Resp 20 03/04/25 11:58 BP 122/73 03/04/25 11:58 Pulse Ox 98 03/04/25 11:58 O2 Del Method Room Air 03/04/25 11:58 Pertinent Lab Results Pertinent Lab Results: Lab Results 03/04/25 03/04/25 Range/Units 13:00 13:12 WBC 7.2 (4.8-10.8) X10*3/uL RBC 4.85 (4.60-5.80) X10*6/uL Hgb 15.4 (14.0-18.0) g/dl Hct 45.8 (42.0-52.0) % MCV 94.4 (80.0-98.0) fL MCH 31.8 (27.0-33.0) pg MCHC 33.6 (31.0-36.0) g/dl RDW 14.7 (11.0-16.0) % Plt Count 244 (160-400) X10*3/uL MPV 9.4 (9.4-12.4) fL Absolute Nucleated RBC 0.000 (0.0-0.012) X10*3/uL Nucleated RBC % (auto) 0.0 (0.0-0.2) /100WBC Sodium 143 (135-145) mmol/L Potassium 4.1 (3.3-5.1) mmol/L Chloride 110 H (96-108) mmol/L Carbon Dioxide 25 (22-29) mmol/L Anion Gap 12 (12-20) BUN 13 (9-16) mg/dL Creatinine 0.63 (0.5-1.4) mg/dL Estim Creat Clear Calc 104.0 Estimated GFR > 60 Random Glucose 95 (60-115) mg/dL Calcium 9.1 (8.4-10.2) mg/dL Blood Type A Positive Antibody Screen NEGATIVE Airway Mallampati Class: III TM Dist: >3cm Neck ROM: Full Loose/Missing/Broken Teeth: No (Crowned molars) Heart: RRR Lungs: CTAB Assessment and Plan Assessment Anesthesia Assessment: Anesthesia Plan Discussed and PAT Visit Final Anesthetic Review Family History of Problems with Anesthesia: No History of Problems with Anesthesia: No Documented by User: Karely Calabrese DO 03/19/25 12:08 [facility] Past Medical History Medical History (Updated 03/19/25 @ 10:21 by Robert Bethea RN) History of malignant melanoma of back Neuropathy Back pain GERD (gastroesophageal reflux disease) Hiatal hernia BPH (benign prostatic hyperplasia) Fatty liver Depression Renal calculi Steatosis, liver Barretts esophagus Melanoma Lumbar spondylosis Family History Family history of problems with anesthesia: No Surgical History Surgical History History of pyloromyotomy H/O colonoscopy History of esophagogastroduodenoscopy (EGD) History of Problems with Anesthesia: No Social History Social History Household Members Other:: 2 family house Are you a primary acute care registered nurse to a significant other at home: No Do you presently have visiting nurse or other home services: Yes (homemaker services) Patient Tobacco Use Status: Never used Tobacco Use of substances other than those prescribed or required for medical reasons: Yes Substance Use Type Other:: smokes marijuana-advised to hold alcohol & marijuana 3 days pre-op Substance Use Frequency: Daily Have you been hit, kicked, punched, or otherwise hurt by someone within the past year? If so, by whom?: No Spiritual Healthcare Practices: no Confucianism Healthcare Practices: no Cultural Healthcare Practices: no Are you DNR?: No Advance Directives: No Advance Directives Information Provided: No Advance Directives on File: No Meds Allergies Allergy/AdvReac Type Severity Reaction Status Date / Time esomeprazole Allergy Severe severe Verified 03/04/25 11:46 loss of balance/dizziness Home Medications ?Medication ?Instructions ?Recorded ?Confirmed ?Last Taken ?Type diazepam 10 mg tablet 10 mg PO BEDTIME 02/27/25 03/19/25 Unknown History fluoxetine 40 mg capsule 40 mg PO QAM 02/27/25 03/19/25 03/18/25 History cyanocobalamin (vitamin B-12) 1,000 mcg PO DAILY 03/04/25 03/19/25 03/18/25 History 1,000 mcg tablet (Vitamin B-12) magnesium oxide 500 mg capsule 500 mg PO BID 03/04/25 03/19/25 03/18/25 History multivitamin 2 tab PO DAILY 03/04/25 03/19/25 03/18/25 History pantoprazole 40 mg tablet,delayed 40 mg PO QAM 03/04/25 03/04/25 03/19/25 History release Exam Exam Date and Time: 03/19/25 1200 Height,Weight and Vital Signs: Height 5 ft 8 in Weight 79.379 kg Last Vital Signs Pulse 71 03/04/25 11:58 Resp 20 03/04/25 11:58 BP 122/73 03/04/25 11:58 Pulse Ox 98 03/04/25 11:58 O2 Del Method Room Air 03/04/25 11:58 Height 5 ft 8 in Weight 79.379 kg Vital Signs Pulse Rate 71 03/04/25 11:58 Respiratory Rate 20 03/04/25 11:58 Blood Pressure 122/73 03/04/25 11:58 Pulse Oximetry 98 03/04/25 11:58 Oxygen Delivery Method Room Air 03/04/25 11:58 Temperature 98.4 F 03/19/25 10:35 Pulse Rate 76 03/19/25 10:35 Respiratory Rate 18 03/19/25 10:35 Blood Pressure 121/82 03/19/25 10:35 Pulse Oximetry 95 03/19/25 10:35 Oxygen Delivery Method Room Air 03/19/25 10:35 Airway Mallampati Class: II TM Dist: >3cm Neck ROM: Full Loose/Missing/Broken Teeth: No (patient denies any loose or broken teeth) Heart: S1S2 Assessment and Plan Assessment Anesthesia Assessment: Anesthesia Plan Discussed and Chart Reviewed Final Anesthetic Review Family History of Problems with Anesthesia: No History of Problems with Anesthesia: No NPO: Yes ASA Class: II Final Preanesthetic Review: No Changes in Pt Med Stat, Meds/Allgs Chart Reviewed, Consent Obtained/Reviewed and Anes Risks/Benef Reviewed Patient Risk: Low Procedure Risk: Intermediate Anesthetic Plan Anesthetic Plan: GA and Agree w/ Assess. and Plan Disposition: Standard PACU
--- NOTE | 2025-03-19 16:10 | W.PM.OPN ---
Operative Note Operative Note Date of Service: 03/19/25 Narrative: Preop Diagnosis: 1.) Lumbar degenerative scoliosis 2.) Lumbar spinal stenosis with neurogenic claudication Procedure: 1) L3-4, L4-5 discectomy, arthrodesis and implantation cage through an anterolateral, retroperitoneal approach 2) L3-L5 posterior instrumented fusion 3) allograft 4) Injection of 10 cc of Exparel at the transverse process for a muscular erector spinae block and additional Exparel in paravertebral tissue for postop management Consent Informed Consent was obtained for this operation. I have explained the nature, purpose and benefits of the operation. I have discussed the risks and benefit of the operation including possible complications or adverse events with patient/family. Alternative(s) were discussed with the patient with their relative benefits and risks as well as the consequences of not accepting the operation were included in obtaining consent. Surgeon: LIANNA GARCIA MD, PHD Procedure Assisted By: cecily Flowers Description of Procedure This patient is suffering from back pain and neurogenic claudication symptoms due to a degenerative scoliosis and spinal stenosis of the levels L3-4 and L4-5. The patient was offered an oblique lumbar interbody fusion L3-4 and L4-5. The procedure and complications were explained. The patient was consented. The patient was brought to the operating room and endotracheally intubated. The patient was turned in a lateral position with the left side up. Prep and drape was done followed by timeout. A small incision was made in the left lower abdominal quadrant. The muscle fascia was opened after which the 3 muscle layer was split to enter the retroperitoneal space. Dilators were docked in the anterior one third of the L4-5 disc space followed by a retractor. The retractor was opened. The L4-5 disc space was exposed. An annulotomy was done after which an elevator Lewis was used to release the disc material from its endplates and to perforate the contralateral side. A partial discectomy was done. An 8 mm and 10 mm height trial implant was inserted. The discectomy was completed. The endplates were prepared. An 10 x 50 mm with 6 degree lordosis 4 web cage filled with allograft was inserted into the disc space under fluoroscopic guidance. This resulted in partial correction of the scoliosis. I was unable to position of the cage in the center and it ended up more posteriorly. Then attention was turned to the L3-4 level. Annulotomy was done and the elevate a Lewis was used to release the disc material from the endplates. An 8 mm and 10 mm high trial were inserted. A disc space was prepared with the endplate preparation after which a 10 x 45 and 0 degree lordosis 4 web cage filled with allograft was inserted into the disc space under fluoroscopic guidance. The retractor was removed. Hemostasis was done. The incision was closed in 2 layers. Steri-Strips used to approximate incision. An OpSite with Tegaderm was used to cover the incision. This marked first part of the procedure. The patient was turned prone on the Horacio spine table. 2C arms were installed for fluoroscopy. Prep and drape was done followed by a second timeout. Injection of 10 cc of Exparel at the bilateral L4 transverse processi for a muscular erector spinae block. Two paramedian incisions were made lateral from the L3-L5 pedicles. The muscle fascia was opened after which the muscle layer was split bluntly to expose the posterolateral gutter. The following steps were taken. A pediguard tap was used to create a transpedicular trajectory into the vertebral body. A K wire was placed. A specially designed instrument was advanced over the K wire to decorticate the posterolateral gutter in preparation for the posterolateral fusion. A pedicle screw was advanced over the K wire and the K wire was removed. The steps were done for the bilateral L3, L4 and L5 pedicles. A total of 6 screws were placed with a diameter of 7.5 x 45 mm. Pedicle screws were connected with 60 mm peg on the right side and a 65 mm peg on the left side and locked down with locking caps. The extension towers were removed. The posterolateral gutter was filled with allograft to complete the posterolateral L3-L5 fusion Hemostasis was done and the incision was closed in 2 layers. Steri-Strips were used to approximate the incision. An OpSite with tegaderm was used to cover the incision. All sponge and needle counts were correct. Patient was extubated and transferred in stable is to recovery room. This procedure was done with the aid of physician social worker assistant, who participated in placement of the pedicle screws, interpretation of x-rays, placement of allograft and closure of the incisions. Anesthesia: General Estimated Blood Loss (ml): 100 Duration of Surgery: 3 hours Complications: None Postoperative Plan: Admit to inpatient for clinical observation
[2025-03-19] MEDS: oxyCODONE HCl Immed Release 5 MG TABLET PO (16:59)
[2025-03-19] MEDS: oxyCODONE HCl Immed Release 5 MG TABLET 10 MG PO (21:12)
[2025-03-20] MEDS: oxyCODONE HCl Immed Release 5 MG TABLET PO ×2 (02:29→08:06)
[2025-03-20 03:33] VITALS: BP 112/65; PULSE 74; RESP 16; TEMP 36.5; O2SAT 97
--- NOTE | 2025-03-20 04:49 | PC.NURSE ---
Addendum entered by Yamilex Arriaza RN 03/20/25 06:56: pt was walked twice to the bathroom w/ 1 assist w/ walker. Original Note: Late entry: Pt was due to void at 21:30. Pt was unable to void at that time. Pt was assisted OOB w/walker to the bathroom but was unable to void. Pt was bladder scan for 468mls. Pt had an physician order for straight catheterization PRN if unable to void within 4 hours of surgery, s/p lumbar fusion. Pt attempted to go to the bathroom but still having difficulty w/ voiding. Pt was straight cath w/ an coude cath after difficulty with the 1st attempt at being straight cath by this signwriter. Pt has Hx of BPH. 450ml of sabina color urine was the output of the straight cath at 01:50. Pt is due to void by 07:50. Will continue to monitor pt's output.
[2025-03-20 07:20] VITALS: BP 115/71; PULSE 71; RESP 16; TEMP 36.5; O2SAT 97
--- NOTE | 2025-03-20 07:26 | P.DS_ITS ---
DS: Providers Provider Date of admission: 03/19/25 10:20 Date of discharge: 03/20/25 Primary care physician: Morgan Newby MD DS: Summary Time Attestation Discharge Coordination Time (in mins): 12 Quality: Safe Use of Opioids Does Pt have an Active Cancer Diagnosis on the Problem List?: No Quality: Stroke Does the patient have a stroke diagnosis?: No Physical Exam Vital Signs: Vital Signs: Last Vital Signs Temp 97.7 F 03/20/25 07:20 Pulse 71 03/20/25 07:20 Resp 16 03/20/25 07:20 BP 115/71 03/20/25 07:20 Pulse Ox 97 03/20/25 07:20 O2 Del Method Room Air 03/20/25 07:20 BMI result Body Mass Index 26.6 Discharge Plan Discharge Anticipated Discharge Date/Time: 03/20/25 07:27 Patient Disposition: Home, Self-Care Discharge Diagnosis: s/p L3-5 OLIF Referrals: Morgan Newby MD [Primary Care Provider, Internal Medicine] - 1 Week Discharge Medications: New oxycodone 5 mg tablet See Rx Instructions .ROUTE .COMPLEX PRN (Reason: pain) Qty: 30 0RF Rx Instructions: TAKE 1-2 TABLETS BY MOUTH EVERY 4 HOURS; Partial Fill upon patient request. docusate sodium 100 mg capsule 100 mg PO BID PRN (Reason: constipation) Qty: 14 0RF Continued fluoxetine 40 mg Capsule 40 mg PO QAM diazepam 10 mg Tablet 10 mg PO BEDTIME pantoprazole 40 mg tablet,delayed release (DR/EC) 40 mg PO QAM multivitamin Tablet 2 tab PO DAILY cyanocobalamin (vitamin B-12) [Vitamin B-12] 1,000 mcg Tablet 1,000 mcg PO DAILY magnesium oxide 500 mg Capsule 500 mg PO BID Discharge Orders: Discharge Order (Routine); Ordered 03/20/25 Ordered By: Sai Antonio Diet: Advance to usual diet Activity on Discharge: As tolerated Stand Alone Forms: Patient Portal Discharge page Print Language: Thai Activity Restrictions/Additional Instructions: After your spinal surgery we ask you to observe the following restrictions/guidelines: Activity: It is normal to feel some discomfort as you increase your activity, but that will improve with time. We ask you avoid heavy lifting or acitivities that cause pain. As a general rule, 8lbs is a safe limit for lifting right after surgery. Walk as much as you feel comfortable but not to exhaustion. You will feel extra tired the first few days after surgery. Stay well hydrated. It is OK to walk up and down stairs You may return to driving when you are off narcotics (such as vicodin, oxycodo ne, dilaudid, etc), and you are back to normal functional capacity. If you have any concerns please check with office before driving. Return to work is specific to each patient and each surgery, so please speak with your doctor/PA at first follow up. Please bring paperwork such as FMLA at that time if you need it filled out. Medications: We recommend you take 500mg Tylenol every 4 hours for the first week after surgery, if you do not have any liver issues and can tolerate this medication. Do not exceed 4,000mg daily. We also recommend you take Ibuprofen 600mg every 8 hours for the first week after surgery starting on post op day 1, if you do not have any kidney or sugar control issues and can tolerate this medication. Do not exceed 2,000mg daily. We will give you a short supply of narcotics after surgery (usually one weeks worth). If you need more please call the office but do not use more than prescribed. You will need to give our office 48 hours notice if you need narcotics refilled and we do not fill narcotics on weekends or evenings. Avoid taking your oxycodone 4 hours before / after your nighttime Diazepam dose. If these medications are taken close together they can cause significant sedation and respiratory depression. If you are on a narcotic, it is a good idea to take a stool softener such as colace or senna to avoid constipation If you take blood thinner such as aspirin, Plavix, Coumadin, Effient, Eliquis etc for conditions such as Afib, DVT, Pulmonary embolus, coronary disease, stents etc please speak with your surgeon about specific details as to when you can resume these medications. You can resume NSAIDs on post op day 1 (eg: Motrin, Naproxen, etc). Follow up: Please call the office, , after surgery to arrange a 3 week follow up for wound check. Wound Care: You may remove your dressing on the first day after surgery. ?You may ?leave open to air. Please do not remove the steri strips underneath. they will fall off on their own in one week. IT IS NORMAL FOR THE WOUND TO OOZE OR BE BLOODY FOR A FEW DAYS AFTER SURGERY. ?IF THIS HAPPENS JUST PLACE NEW DRESSING OVER IT TO AVOID STAINING CLOTHES. You may shower on post op day # 1 We ask that you do not let the water soak the wound. If it does get wet, just towel dry lightly. Please do not scrub your incision or place any type of chemical/ointment on the wound. No tub baths, pools or jacuzzis for one month. If you have any leaking or redness from your wound, or fevers, please call the office. Care Plan Goals: Return to normal activity as [facility] Concerns: none Plan of Treatment: follow-up in clinic in 2-3 weeks Assessment: Addenda: Nursing staff reported the patient was able to void independently multiple times. Therefore he will be discharged home without a Sparrow catheter / urology referral, however he should still follow up with the Urology outpatient on his own. POD: 1 Procedure: L3-5 YANET Major is a pleasant 69-year-old male who underwent the above-listed procedure with Dr. Dye yesterday. He was seen lying in bed this morning on [address] in room 347. He initially reported he had not been OOB since surgery, howver nursing station supervisor reported he did walk to the bathroom and sat on the toilet. Unfortunately he has baseline prostate hypertrophy and had difficulty with urination preoperatively, which is persisting now in the acute postoperative period. He feels his symptoms are overall much better than pre-operatively. He still reports mild low back pain, with good relief with pain medication. He is tolerating his current diet without issue. Afebrile, vital signs stable. The patient has full strength and sensation of his lower extremities during examination today. No deficits to light touch during exam. Back dressings have some staining without signs of hematoma. No active sanguineous drainage. Area is dry. Plan: Pleasant 69-year-old male who underwent the above-listed procedure with Dr. Dye yesterday. He has not voided independently as of yet. We would like to see him get up out of bed and try and work with physical therapy. If he is not able to void by this afternoon we may consider placing a Sparrow catheter with a referral for urology follow up. We will check back in with him after our surgical cases this morning. I have sent in a prescription for narcotic pain control and a stool softener to the pharmacy here at [facility]. This was discussed with my attending neurosurgeon Dr. Dye who saw the patient with me this morning. Sai Dye MD,PhD [facility]
--- NOTE | 2025-03-20 07:36 | HO.PN-NSUR_ITS ---
Subjective Subjective Date of Service: 03/20/25 Critical Care Time (minutes): 14 Physical Exam 2 Vital Signs: Vital Signs: Last Vital Signs Temp 97.7 F 03/20/25 07:20 Pulse 71 03/20/25 07:20 Resp 16 03/20/25 07:20 BP 115/71 03/20/25 07:20 Pulse Ox 97 03/20/25 07:20 O2 Del Method Room Air 03/20/25 07:20 BMI result Body Mass Index 26.6 Objective Data Labs 03/04/25 13:12 03/04/25 13:12 Progress Note: A&P Assessment and plan (1) S/P lumbar fusion: Status: Acute Plan POD: 1 Procedure: L3-5 OLIF Pedrito is a pleasant 69-year-old male who underwent the above-listed procedure with Dr. Dye yesterday. He was seen lying in bed this morning on [address] in room 347. He initially reported he had not been OOB since surgery, howver nursing parking supervisor reported he did walk to the bathroom and sat on the toilet. Unfortunately he has baseline prostate hypertrophy and had difficulty with urination preoperatively, which is persisting now in the acute postoperative period. He feels his symptoms are overall much better than pre-operatively. He still reports mild low back pain, with good relief with pain medication. He is tolerating his current diet without issue. Afebrile, vital signs stable. The patient has full strength and sensation of his lower extremities during examination today. No deficits to light touch during exam. Back dressings have some staining without signs of hematoma. No active sanguineous drainage. Area is dry. Plan: Pleasant 69-year-old male who underwent the above-listed procedure with Dr. Dye yesterday. He has not voided independently as of yet. We would like to see him get up out of bed and try and work with physical therapy. If he is not able to void by this afternoon we may consider placing a Sparrow catheter with a referral for urology follow up. We will check back in with him after our surgical cases this morning. I have sent in a prescription for narcotic pain control and a stool softener to the pharmacy here at [facility]. This was discussed with my attending neurosurgeon Dr. Dye who saw the patient with me this morning. Saireyna Dye MD,PhD [facility] Time Spent With Patient Time: Total time managing care of this patient today ____ minutes. Procedures Date of Service Date of Service: 03/20/25 Quality Stroke Does the patient have a stroke diagnosis?: No VTE Prior VTE?: No VTE Risk Level:: Surgical - low VTE Device Contraindication: N/A - Device Ordered VTE Drug Contraindication: Treatment Not Indicated
--- NOTE | 2025-03-20 09:40 | HO.POSTANES ---
Post Anesthesia Evaluation Post Anesthesia Evaluation Date of Service: 03/20/25 Vital Signs: Vital Signs Temp Pulse Resp BP Pulse Ox O2 Del Method 03/20/25 07:20 97.7 F 71 16 115/71 97 Room Air 03/20/25 03:33 97.7 F 74 16 112/65 97 Room Air 03/19/25 23:34 97.8 F 70 16 112/66 92 Room Air Anesthesia: General Mental Status: Awake Pain Control: Satisfactory Nausea/Vomiting: None Hydration: Adequate Anesthesia-Related Issues: No Anes. Related Issues
--- NOTE | 2025-03-20 09:49 | MHC.CM.PN ---
pt dcd home self care
--- NOTE | 2025-03-20 10:38 | MHC.CM.PN ---
pt lives with a roomate has a ride home dc plan home with ke
[2025-03-20 11:01] VITALS: BP 132/64; PULSE 88; RESP 18; TEMP 36.7; O2SAT 98
== END 2025-03-20 11:42 | disposition home or self-care (01) | DRG 458 ==
LOC: HO.SSSA 10:28 → HO.S3 16:44
PROVIDERS: Neurological Surgery; Nurse Practitioner; Admitting Provider Physician Assistant; PCP Family Medicine; Visit Provider Physician Assistant
PROC: 0SG10A0 Fusion of 2 or more Lumbar Vertebral Joints with Interbody Fusion Device, Anterior Approach, Anterior Column, Open Approach (ICD-10-PCS; principal; 2025-03-19 12:30)
DX: M48.062 Spinal stenosis, lumbar region with neurogenic claudication (principal); M41.56 Other secondary scoliosis, lumbar region; R33.9 Retention of urine, unspecified; M43.16 Spondylolisthesis, lumbar region; M81.0 Age-related osteoporosis without current pathological fracture; Z79.899 Other long term (current) drug therapy
CPT/HCPCS: 36415; 80048; 85027; 86850; 86900; 86901; 97161; C1713; C1889; J0131; J0665; J0666; J0690; J1100; J1171; J1885; J2704; J3010; L8699

== ENCOUNTER → 2025-03-19 10:20 | Outpatient (BNV) | payer MEDICARE, SELFPAY | PROVIDERS: Admitting Provider Physician Assistant; PCP Family Medicine; Visit Provider Neurological Surgery | DX: Z98.1 Arthrodesis status (principal) | CPT/HCPCS: 99024; 99499 ==